=== PATIENT | female | born 1945 | race Caucasian/White ===

== ENCOUNTER 2017-05-08 15:59 | Inpatient (IN) | payer MEDICARE, MEDICAID ==
[2017-05-08 16:34] LABS: Hematocrit 49.7 % (37.0-47.0); Hemoglobin 14.5 gm/dL (12.5-16.0); Mean Cell Volume 94.7 fl (78-100); Mean Corpuscular Hemoglobin 27.6 pg (27-31); Mean Corpuscular Hgb Conc 29.2 g/dl (32-36); Mean Platelet Volume 11.1 fl (6.0-9.5); Neutrophil # 9.4 K/mm3 (1.3-6.0); Neutrophil % 88.2 % (42-75.0); Platelet Count 226 K/mm3 (150-450); Red Blood Count 5.25 M/mm3 (4.2-5.4); Red Cell Distribution Width 15.6 % (11.5-14.0); White Blood Count 10.7 K/mm3 (4.0-10.5)
--- OUTSIDE RECORDS SUMMARY | 2017-05-08 16:36 | XMS REPORT | Continuity of Care Document ---
:1945 Demographics Phone Unavailable Preferred Language Unknown Marital Status Unknown Worship Affiliation Unknown Race Unknown Ethnic Group Unknown Author Organization [facility] ([facility]) [place] [address] Phone [phone] Care Team Providers Name Role Phone Unavailable Primary Care Provider Unavailable Source Comments This disclosure is being made pursuant to the Care Everywhere program, applicable federal and state laws, and may not contain all informaitonavailable regarding this patient.[facility] ([facility]) Active Allergies and Adverse Reactions Not on File Current Medications Not on file Active Problems Not on file Social History Tobacco Use Types Packs/Day Years Used Date Never Assessed Plan of Care Health Maintenance Due Date Last Done Comments HCV Screening 1945 Hepatitis B Vaccine (1 of 3 - Primary Series) 1945 Tdap Vaccine 1957 Lipid Disorder Screening 1964 Td Vaccine 1964 Mammogram 1986 Colonoscopy 05/10/1996 Zoster Vaccine 2006 Osteoporosis Screening (DXA Bone Density) 2011 Pneumococcal Vaccine (1 of 2 - PCV13) 2011 Influenza Vaccine: Seasonal (#1) 07/01/2016 Results from Last 3 Months Not on file
--- OUTSIDE RECORDS SUMMARY | 2017-05-08 16:36 | XMS REPORT | Continuity of Care Document ---
:1945 Author Organization [facility] Address [place] [address] Care Team Providers Name Role Phone Rafael Diaz Trice Primary Care Provider [phone] Source Comments This disclosure is being made pursuant to the [employer] program and maynot contain all information available regarding this patient.[facility] [employer] Active Allergies and Adverse Reactions No Known Allergies Current Medications Be aware that medications may not be up to date as of this document. Alwaysverify current medications with the patient. Prescription Sig. Disp. Refills Start Date End Date Status amLODIPine (NORVASC) 10 MG 2 04/15/2017 Active tablet SYMBICORT 80-4.5 MCG/ACT 0 04/09/2017 Active inhaler furosemide (LASIX) 20 MG TK 2 TS PO QD 0 04/09/2017 Active tablet lamoTRIgine (LAMICTAL) 100 1 03/20/2017 Active MG tablet lithium 300 MG capsule TK 1 C PO D 0 03/20/2017 Active LATUDA 60 MG TABS tablet 1 03/27/2017 Active metoprolol succinate 5 04/07/2017 Active (TOPROL-XL) 50 MG 24 hr tablet SPIRIVA HANDIHALER 18 MCG 5 03/25/2017 Active inhalation capsule traZODone (DESYREL) 100 MG 1 03/20/2017 Active tablet ondansetron (ZOFRAN-ODT) 4 Take 1 tablet 15 tablet 1 05/07/2017 Active MG disintegrating tablet by mouth every 8 (eight) hours as needed for Nausea. MethylPREDNISolone Follow package 1 Package 0 05/07/2017 Active (MEDROL) 4 MG dosepak directions. 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); Decreased breath sounds; Dizzy Social History Tobacco Use Types Packs/Day Years Used Date Former Smoker Last Filed Vital Signs Vital Sign Reading Time Taken Blood Pressure 138/90 05/07/2017 3:58 PM CDT Pulse 67 05/07/2017 3:58 PM CDT Temperature 36.6 C (97.9 F) 05/07/2017 3:58 PM CDT Respiratory Rate 20 05/07/2017 3:58 PM CDT Height 1.575 m (5' 2") 05/07/2017 3:58 PM CDT Weight 105.235 kg (232 lb) 05/07/2017 3:58 PM CDT Body Mass Index 42.42 05/07/2017 3:58 PM CDT Oxygen Saturation 88% 05/07/2017 3:58 PM CDT Plan of Care Health Maintenance Due Date Last Done Comments Hepatitis C Screening 1964 Tetanus/Pertussis (1 - Tdap) 1965 Colonoscopy 1996 Mammogram 1996 Well Adult Visit 1996 Zoster Vaccine 60+ 2006 Bone Density 2011 Pneumococcal Low/Medium Risk 65+ (1 of 2 - PCV13) 2011 Influenza Immunization (#1) 2016 Results from Last 3 Months Not on file
[2017-05-08] MEDS ORDERED: ALBUTEROL SULFATE/IPRATROPIUM 3 ML NEBU IH ONE ×2 (16:44→16:46)
[2017-05-08] MEDS ORDERED: METHYLPREDNISOLONE SOD SUCC/PF 40 MG/ML VIAL IV ONE ×2 (16:47→16:57)
[2017-05-08] MEDS ORDERED: METHYLPREDNISOLONE SOD SUCC/PF 125 MG/2 ML VIAL ONE (16:48)
[2017-05-08 16:53] LABS: Albumin * 3.1 gm/dl (3.4-5.0); Anion Gap 7.7 mmol/L (6.8-13.8); BUN/Creatinine Ratio 9.4 (9.0-21.6); Bilirubin, Total 0.6 mg/dL (0.0-1.1); Ca. Corrected For Albumin 9.5 mg/dL (8.4-10.2); Calcium * 9.1 mg/dL (7.9-10.9); Carbon Dioxide 36.6 mmol/L (24-32.6); Potassium 4.3 mmol/L (3.4-4.6); Total Protein 7.1 gm/dL (6.2-8.2)
--- NOTE | 2017-05-08 17:32 | ERNOTE ---
Dyspnea - General Presenting Symptoms: shortness of breath, difficulty of breathing Time Seen by Provider: 05/08/17 16:04 Source: patient, family - Immun/Allergies/Home Medications Immunizations: IMMUNIZATION HX Immunizations Up to Date Yes History of Influenza Vaccine Yes Hx Pneumococcal Vaccination Yes Allergies/Adverse Reactions: Allergies No Known Allergies Allergy (Verified 05/20/16 15:43) Home Medications: HOME MEDICATIONS Albuterol Sulfate [Albuterol Sulfate 2.5 MG/0.5ML] 1 vial IH Q6H PRN 08/14/15 [ Last Taken Unknown] Clonazepam 2 mg PO DAILY@199908/14/15 [Last Taken Unknown] Gabapentin [Neurontin] 400 mg PO HS 08/14/15 [Last Taken Unknown] [place] Carbonate 300 mg PO DAILY 08/14/15 [Last Taken Unknown] Lurasidone HCl [Latuda] 120 mg PO DAILY 08/14/15 [Last Taken Unknown] Venlafaxine HCl 125 mg PO DAILY 08/14/15 [Last Taken Unknown] buPROPion HCL [Wellbutrin] 100 mg PO DAILY 08/14/15 [Last Taken Unknown] traZODone HCL [Desyrel] 50 mg PO HS 08/14/15 [Last Taken Unknown] traZODone HCL [Oleptro ER] 100 mg PO HS 08/14/15 [Last Taken Unknown] Metoprolol Succinate [Toprol Xl] 50 mg PO DAILY 05/20/16 [Last Taken Unknown] amLODIPine BESYLATE [Norvasc] 10 mg PO DAILY 05/20/16 [Last Taken Unknown] Albuterol Sulfate [Albuterol Sulfate 2.5 MG/0.5ML] 2.5 mg IH Q6HRT PRN #0 vial.neb 05/21/16 [Last Taken Unknown] Aspirin [Aspirin Chewable] 81 mg PO DAILY #100 tablet 05/21/16 [Last Taken Unknown] Budesonide/Formoterol Fumarate [Symbicort 80-4.5 Mcg Inhaler] 10.2 gm IH BID #1 hfa.aer.ad 05/21/16 [Last Taken Unknown] Cholecalciferol (Vitamin D3) [Vitamin D3] 4,000 unit PO DAILY #100 capsule 05/21 [Last Taken Unknown] Furosemide [Lasix] 40 mg PO DAILY #60 tablet 05/21/16 [Last Taken Unknown] Ibuprofen [Motrin] 400 mg PO Q8H PRN #60 tablet 05/21/16 [Last Taken Unknown] Potassium Chloride [K-Dur] 20 meq PO DAILY@1200 #60 tab 05/21/16 [Last Taken Unknown] - History of Present Illness Narrative: Patient presents with progressively worsening shortness of breath over the last 2 days. Daughter states when she arrived today that mother was considerably worse in her normal state. Patient has been using her albuterol at home, and she states she quit smoking approximately 2 years ago. Patient admits to over a 50 year pack history of smoking. Patient states that she is also developed a cough over the past 2 days. 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 Frequency of episodes: Reports: occassional episodes Modifying Factors - (Improves): Reports: albuterol Modifying Factors (Worsens): Reports: activity Associated Symptoms-Dyspnea: Reports: cough, wheezing Review of Systems - Review of Systems Constitutional: Present: See HPI EYE: Present: no symptoms reported ENT: Present: no symptoms reported Respiratory: Present: See HPI, shortness of breath, cough, wheezing Cardiology: Present: no symptoms reported Gastrointestinal/Abdominal: Present: no symptoms reported Genitourinary: Present: no symptoms reported Musculoskeletal: Present: no symptoms reported Skin: Present: no symptoms reported Neurological: Present: no symptoms reported Endocrine: Present: no symptoms reported Hematologic/Lymphatic: Present: no symptoms reported Psych: Present: no symptoms reported - Patient's Past Medical History Patient History - Medical: Anxiety, Bipolar, Depression Patient History - Cardiac/Respiratory: CHF, COPD, Hypertension Patient History - Cancer: No Hx of Cancer Patient History - Surgical Procedures: Cholecystectomy Patient History - Other: None - Family History Father Family History - Medical: Family History - Cardiac/Respiratory: COPD Mother Family History - Medical: Family History - Cardiac/Respiratory: CVA/Stroke Sister Family History - Medical: Family History - Cardiac/Respiratory: COPD, CVA/Stroke - Social History Living Situations: home Abuse History: No History of abuse Psych History: Hx of Anxiety, Hx of Depression, Hx of Bipolar Disorder, Current tx/ever been on anti-depressants or anti-anxiety meds Smoking Status: Former smoker Have you smoked in the past 12 months: No Do you dip or chew tobacco: No Alcohol Use: occasionally Drug Use: none - Immunizations Immunizations Up to Date: Yes Hx Pneumococcal Vaccination: Yes History of Influenza Vaccine: Yes Physical Exam - Physical Exam General Appearance: Present: wd/wn, alert, moderate distress Eye Exam: Normal inspection: bilateral, PERRL: bilateral Ears, Nose, Throat: Present: normal ENT inspection, H, normal pharynx Neck: Present: normal inspection, nontender Respiratory: Present: chest nontender, respiratory distress, decreased breath sounds, wheezing Cardiovascular/Chest: Present: regular rate, rhythm, no murmur, normal peripheral pulses Gastrointestinal/Abdominal: Present: normal bowel sounds, nontender, nondistended, soft, no organomegaly Rectal Exam: Present: deferred Back Exam: Present: normal inspection, normal range of motion Extremity Exam: Present: normal inspection, non-tender, no edema, normal range of motion Neurological Exam: Present: alert, oriented, normal mood/affect Skin Exam: Present: normal color, warm/dry Lymphatic Exam: Present: no adenopathy ED Progress - Results and Orders Patient's Lab Results:: I have reviewed the patient's lab results. - Vital Signs Patient's Vital Signs:: I have reviewed the patient's vital signs. Vital Signs: Vital Signs 05/08/17 05/08/17 05/08/17 16:15 16:25 16:46 Temperature 36.4 C L Pulse Rate 84 88 78 Respiratory 22 H 20 Rate Blood Pressure 155/85 O2 Sat by Pulse 70 L 88 L Oximetry 05/08/17 05/08/17 16:56 17:00 Temperature Pulse Rate 79 84 Respiratory 22 H 28 H Rate Blood Pressure 149/81 O2 Sat by Pulse 90 Oximetry - X-Ray X-Ray #1 X-Ray: chest Interpretation: Reviewed by me - Progress/Reassessment Chief Complaint: Dyspnea Plan - Plan Plan: While the patient is mildly improved she is still having considerable shortness of breath. She would benefit from a hospital stay with pulmonary toilet, IV steroids and nebulized breathing treatments. She is amenable and Dr. Cedric Plunkett has agreed to admit. Departure Clinical Impression: Hypoxia, Acute exacerbation of chronic obstructive pulmonary disease (COPD) - Departure Disposition: [facility] Condition: Fair
[2017-05-08 18:42] LABS: Urine Bacteria 3+; Urine RBC None Seen /hpf (0-5); Urine WBC 0-5 /hpf (0-5)
--- OUTSIDE RECORDS SUMMARY | 2017-05-08 19:09 | XMS REPORT | Continuity of Care Document ---
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
--- OUTSIDE RECORDS SUMMARY | 2017-05-08 19:09 | XMS REPORT | Continuity of Care Document ---
:1945 Demographics Phone Unavailable Preferred Language Unknown Marital Status Unknown Anabaptist Affiliation Unknown Race Unknown Ethnic Group Unknown Author Organization [facility] ([facility]) [place] [address] Phone [phone] Care Team Providers Name Role Phone Unavailable Primary Care Provider Unavailable Source Comments This disclosure is being made pursuant to the Care Everywhere program, applicable federal and state laws, and may not contain all informaitonavailable regarding this patient.[facility] ([facility]) Active Allergies and Adverse Reactions Not on [...]
[2017-05-08] MEDS ORDERED: FUROSEMIDE 10 MG/ML VIAL IV ONE (20:41)
[2017-05-08] MEDS: ALBUTEROL SULFATE/IPRATROPIUM 3 ML NEBU IH SCH (21:10)
[2017-05-08] MEDS ORDERED: FUROSEMIDE 10 MG/ML VIAL ONE (22:59)
--- NOTE | 2017-05-08 23:19 | HP ---
Addendum entered and electronically signed by Елена Meraz ARNP 05/09/17 07: 09: an additional O2 sats shortly after admission revealed 88% on 4L nc. sg Addendum entered and electronically signed by Елена Meraz ARNP 05/09/17 06: 22: Under acute on chronic respiratory failure, it should read saturation on admission from ER was 95% on 4L NC NOT RA. SG Original Note: <Елена Meraz - Last Filed: 05/09/17 00:22> Chief Complaint - Chief Complaint Date of Service: 05/08/17 Time of Service: 20:30 Chief Complaint: shortness of breath History of Present Illness: Flakita is a 71 year old patient of Dr. Diaz with a PMH of COPD, chronic respiratory failure on 4L O2 (although she has not been wearing O2 consistently recently), HTN, TORRI (noncompliant with cpap), depression and chronic UTIs who presented to the ER with dyspnea. States has felt "out of it" and shaky for 1 week with increasing dyspnea for 2 days. O2 sats in ER 70% on RA. currently saturating 95% on 4L nc. ABG showed acute respiratory acidosis with concomitant metabolic alkalosis, pCO2 at 65.0, ph 7.31 - however ABG was done when pt on O2 after 10 minutes. UA positive for +3 bacteria, no RBC, no WBC, no epi cells with culture pending. BNP elevated at 1455. ER treatment included duoneb, 125 mg iv solumedrol and rocephin 1 gm iv. echo 02/27/15 ef 70 % with mod LVH and possible diastolic dysfunction. Patient to be admitted for acute on chronic respiratory failure and COPD exacerbation. Stay expected to be at least 3 midnights. - Patient's Past Medical History Patient History - Medical: Anxiety, Bipolar, Depression Patient History - Cardiac/Respiratory: CHF, COPD, Hypertension Patient History - Cancer: No Hx of Cancer Patient History - Surgical Procedures: Cholecystectomy Patient History - Other: None LMP (females 10-50): Menopausal - Family History Father Family History - Medical: Family History - Cardiac/Respiratory: COPD Mother Family History - Medical: Family History - Cardiac/Respiratory: CVA/Stroke Sister Family History - Medical: Family History - Cardiac/Respiratory: COPD, CVA/Stroke - Social History Living Situations: alone Abuse History: No History of abuse Psych History: Hx of Anxiety, Hx of Depression, Hx of Bipolar Disorder, Current tx/ever been on anti-depressants or anti-anxiety meds Smoking Status: Former smoker Have you smoked in the past 12 months: No Do you dip or chew tobacco: No Smoking Stop Date: 05/08/15 Patient requests Smoking Cessation Consult: No Initiate information on Smoking Cessation: No Alcohol Use: occasionally Drug Use: none - Immunizations Immunizations Up to Date: Yes Hx Pneumococcal Vaccination: Yes History of Influenza Vaccine: Yes Review Of Systems (GEN) - Review of Systems Generalized/Overall Review: Present: Malaise, Fatigue. Absent: Fever EENTM: Present: No Symptoms Reported Respiratory: Present: Shortness of Breath Cardiac: Present: No Symptoms Reported Abdominal: Present: No Symptoms Reported Genitourinary: Present: No Symptoms Reported Musculoskeletal: Present: No Symptoms Reported Neurological: Present: No Symptoms Reported Skin: Present: No Symptoms Reported Endocrine: Present: No Symptoms Reported Misc: All systems neg except as marked Immunizations: IMMUNIZATION HX Immunizations Up to Date Yes History of Influenza Vaccine Yes Hx Pneumococcal Vaccination Yes Allergies/Adverse Reactions: Allergies Allergy/AdvReac Type Severity Reaction Status Date / Time No Known Allergies Allergy Verified 05/09/17 02:09 Home Medications: HOME MEDICATIONS Albuterol Sulfate [Albuterol Sulfate 2.5 MG/0.5ML] 1 vial IH Q6H PRN 08/14/15 [ Last Taken Unknown] Clonazepam 2 mg PO DAILY@199908/14/15 [Last Taken 05/07/17] Gabapentin [Neurontin] 400 mg PO 08/14/15 [Last Taken 05/07/17] Giltner Carbonate 300 mg PO DAILY 08/14/15 [Last Taken 05/08/17] Lurasidone HCl [Latuda] 120 mg PO DAILY 08/14/15 [Last Taken 05/08/17] Venlafaxine HCl 125 mg PO DAILY 08/14/15 [Last Taken 05/08/17] buPROPion HCL [Wellbutrin] 100 mg PO DAILY 08/14/15 [Last Taken 05/08/17] traZODone HCL [Oleptro ER] 100 mg PO 08/14/15 [Last Taken 05/07/17] Metoprolol Succinate [Toprol Xl] 50 mg PO DAILY 05/20/16 [Last Taken 05/08/17] amLODIPine BESYLATE [Norvasc] 10 mg PO DAILY 05/20/16 [Last Taken 05/08/17] Albuterol Sulfate [Albuterol Sulfate 2.5 MG/0.5ML] 2.5 mg IH Q6HRT PRN #0 vial.neb 05/21/16 [Last Taken Unknown] Aspirin [Aspirin Chewable] 81 mg PO DAILY #100 tablet 05/21/16 [Last Taken 05/08] Budesonide/Formoterol Fumarate [Symbicort 80-4.5 Mcg Inhaler] 10.2 gm IH BID #1 hfa.aer.ad 05/21/16 [Last Taken 05/08/17] Cholecalciferol (Vitamin D3) [Vitamin D3] 4,000 unit PO DAILY #100 capsule 05/21 [Last Taken 05/08/17] Furosemide [Lasix] 40 mg PO DAILY #60 tablet 05/21/16 [Last Taken 05/08/17] Ibuprofen [Motrin] 400 mg PO Q8H PRN #60 tablet 05/21/16 [Last Taken Unknown] Potassium Chloride [K-Dur] 20 meq PO DAILY@1200 #60 tab 05/21/16 [Last Taken 07/17] Methylprednisolone [Medrol Dosepak] 24 mg PO DAILY 05/09/17 [Last Taken 09:00] Ondansetron [Zofran Odt] 4 mg PO TID PRN 05/09/17 [Last Taken Unknown] Exam - Exam Vital Signs: Vital Signs - Last Taken Temp 36.8 C 05/08/17 19:57 Pulse 77 05/08/17 21:20 Resp 20 05/08/17 21:20 BP 141/61 05/08/17 19:57 Pulse Ox 94 05/08/17 21:10 Constitutional: Present: Alert, Cooperative, No distress ENT Exam: Present: hearing grossly normal Eye Exam: bilateral eye: normal inspection Neck: Present: full range of motion, supple Back Exam: Present: normal inspection, no vertebral tenderness Breasts: Present: Exam deferred Respiratory: Present: no respiratory distress, rhonchi, wheezing, expiration ( prolonged) Cardiovascular/Chest: Present: normal peripheral pulses, regular rate, rhythm, no chest tenderness Peripheral Pulses: dorsalis-pedis (R): 2+, dorsalis-pedis (L): 2+, radial (R): 2 +, radial (L): 2+ Abdomen: Present: soft, nontender, nondistended /Rectal: Present: Exam deferred Extremity: Present: non-tender, lower extremity edema - +1 pitting bilat. Absent: slow capillary refill Skin Exam: Present: normal color, warm/dry, no cyanosis Diagnostic Studies: Laboratory Results WBC 10.7 K/mm3 (4.0-10.5) H 05/08/17 16:28 RBC 5.25 M/mm3 (4.2-5.4) 05/08/17 16:28 Hgb 14.5 gm/dL (12.5-16.0) 05/08/17 16:28 Hct 49.7 % (37.0-47.0) H 05/08/17 16:28 MCV 94.7 fl (78-100) 05/08/17 16:28 MCH 27.6 pg (27-31) 05/08/17 16:28 MCHC 29.2 g/dl (32-36) L 05/08/17 16:28 RDW 15.6 % (11.5-14.0) H 05/08/17 16:28 Plt Count 226 K/mm3 (150-450) 05/08/17 16:28 MPV 11.1 fl (6.0-9.5) H 05/08/17 16:28 Immature Gran % (Auto) 0.60 % (0.001-0.429) H 05/08/17 16:28 Immature Gran # (Auto) 0.06 K/mm3 (0.000-0.0310) H 05/08/17 16:28 Neutrophils % 88.2 % (42-75.0) H 05/08/17 16:28 Lymphocytes % 8.8 % (20-51) L 05/08/17 16:28 Monocytes % 1.4 % (0.0-9) 05/08/17 16:28 Eosinophils % 0.4 % (0.0-3.0) 05/08/17 16:28 Basophils % 0.6 % (0.0-1.0) 05/08/17 16:28 Nucleated RBC % 0.0 k/mm3 (0-1) 05/08/17 16:28 Neutrophils # 9.4 K/mm3 (1.3-6.0) H 05/08/17 16:28 Lymphocytes # 0.9 k/mm3 (1.5-3.5) L 05/08/17 16:28 Monocytes # 0.2 k/mm3 (0.0-1.0) 05/08/17 16:28 Eosinophils # 0.0 k/mm3 (0.0-0.7) 05/08/17 16:28 Absolute Basophils 0.1 k/mm3 (0.0-0.1) 05/08/17 16:28 pCO2 65.0 mmHg (32.0-45.0) H 05/08/17 16:32 pO2 59.8 mmHg (83.0-108.0) L 05/08/17 16:32 HCO3 31.6 mmol/L (21.0-28.0) H 05/08/17 16:32 Total CO2 33.6 mmol/L (19.0-24.0) H 05/08/17 16:32 Base Excess 3.3 mmol/L (-2.0-3.0) H 05/08/17 16:32 ABG pH 7.31 (7.35-7.45) L 05/08/17 16:32 ABG O2 Sat (Measured) 87.7 % (94.0-98.0) L 05/08/17 16:32 Sodium 139 mmol/L (132-142) 05/08/17 16:28 Plasma Sodium 140 mmol/L (130-142) 05/08/17 16:28 Potassium 4.3 mmol/L (3.4-4.6) 05/08/17 16:28 Chloride 99 mmol/L (97-106) 05/08/17 16:28 Carbon Dioxide 36.6 mmol/L (24-32.6) H 05/08/17 16:28 Anion Gap 7.7 mmol/L (6.8-13.8) 05/08/17 16:28 BUN 12 mg/dL (3-23) 05/08/17 16:28 Creatinine 1.28 mg/dL (0.4-1.4) 05/08/17 16:28 Est GFR (Non-Af Amer) 44 mL/min (60-130) L D 05/08/17 16:28 BUN/Creatinine Ratio 9.4 (9.0-21.6) 05/08/17 16:28 Random Glucose 163 mg/dL (70-110) H 05/08/17 16:28 Calcium 9.1 mg/dL (7.9-10.9) 05/08/17 16:28 Calcium Adj for Albumin 9.5 mg/dL (8.4-10.2) 05/08/17 16:28 Magnesium 1.8 mg/dL (1.2-2.8) 05/08/17 Unknown Total Bilirubin 0.6 mg/dL (0.0-1.1) 05/08/17 16:28 AST 15 U/L (0-48) 05/08/17 16:28 ALT 11 U/L (19-67) L 05/08/17 16:28 Alkaline Phosphatase 107 U/L (50-170) 05/08/17 16:28 B-Natriuretic Peptide 1455 pg/mL (5-325) H 05/08/17 16:28 Total Protein 7.1 gm/dL (6.2-8.2) 05/08/17 16:28 Albumin 3.1 gm/dl (3.4-5.0) L 05/08/17 16:28 Urine RBC None seen /hpf (0-5) 05/08/17 18:41 Urine WBC 0-5 /hpf (0-5) 05/08/17 18:41 Ur Epithelial Cells None seen /hpf (0-5) 05/08/17 18:41 Urine Bacteria 3+ (NONE) H 05/08/17 18:41 Urine Comment Culture ordered L 05/08/17 18:41 Assessment/Plan - Narrative Narrative: COPD exac with hypoxia and hypercapnia - In ER 70% on RA - not using 4L nc at home consistently - ABG c/w respiratory acidosis - hypercapnia noticed as well - Bipap overnight to try and improve - Given duoneb tx and 125 mg iv solumedrol in ER - Start Solumedrol 80 mg q 8 hours - Day #1 - Start IV abx (per COPD exac protocol) - Rocephin 1 gm iv daily - Day #1 - Azithromycin 500 mg iv daily - Day #1 - Duoneb treatments QID - Incentive spirometer q1 hour while awake - encourage cough / deep breathing - cont O2 monitor Acute on Chronic respiratory failure - In ER 70% on RA - not using 4L nc at home consistently - with history COPD, goal O2 range: 88-92% - O2 per nc with bipap was needed has been ordered. - On admission from ER, saturating 95% on RA. - Due to COPD exac. - Abx treatment (per copd protocol) - rocephin 1 gm iv daily - day #1 - azithromycin 500 mg iv daily - day #1 Acute diastolic heart failure exac - lungs sound coarse, although chest xray non-acute. - legs with +1 pitting edema bilat - BNP elevated. - Lasix 40 mg iv x1 05/08/17 - strict I&Os - daily weights - CHF teaching - telemetry Generalized weakness - consult PT/OT UTI, suspected - urine micro only ordered - add UA for additional data - urine culture pending. - Rocephin 1 gm iv daily - Day #1 Sleep apnea - bipap/cpap at night - encourage use at home. HTN - vitals q 4 hours Code status: DNR VTE: lovenox / knee high shanthi hose GI proph: protonix po. - Assessment/Plan (1) Acute exacerbation of chronic obstructive pulmonary disease (COPD) Problem: Acute (2) Acute and chronic respiratory failure ([id number]) Problem: Acute QualifierTitle: Respiratory failure complication: hypoxia and hypercapnia Qualified Code(s): J96.21 - Acute and chronic respiratory failure with hypoxia ; J96.22 - Acute and chronic respiratory failure with hypercapnia (3) Acute diastolic CHF (congestive heart failure), NYHA class 2 Problem: Acute (4) HTN (hypertension) Problem: Chronic QualifierTitle: Hypertension type: essential hypertension Qualified Code( s): I10 - Essential (primary) hypertension (5) Sleep apnea Problem: Chronic QualifierTitle: Sleep apnea type: unspecified type Qualified Code(s): G47.30 - Sleep apnea, unspecified (6) UTI (urinary tract infection) Problem: Acute QualifierTitle: Urinary tract infection type: acute cystitis Hematuria presence: without hematuria Qualified Code(s): N30.00 - Acute cystitis without hematuria (7) Generalized weakness Problem: Acute <Piotr Hines - Last Filed: 05/09/17 18:14> Immunizations: IMMUNIZATION HX Immunizations Up to Date Yes History of Influenza Vaccine Yes Hx Pneumococcal Vaccination Yes Exam - Exam Vital Signs: Vital Signs - Last Taken Temp 36.5 C 05/09/17 14:34 Pulse 80 05/09/17 18:10 Resp 23 H 05/09/17 18:10 BP 131/65 05/09/17 14:34 Pulse Ox 95 05/09/17 18:10 Diagnostic Studies: Abnormal Lab Results 05/09/17 05/09/17 Range/Units 05:43 05:43 WBC 11.3 H (4.0-10.5) K/mm3 Hct 48.3 H (37.0-47.0) % MCHC 29.2 L (32-36) g/dl RDW 15.3 H (11.5-14.0) % MPV 11.1 H (6.0-9.5) fl Immature Gran % (Auto) 1.20 H (0.001-0.429) % Immature Gran # (Auto) 0.13 H (0.000-0.0310) K/mm3 Neutrophils % 87.5 H (42-75.0) % Lymphocytes % 8.8 L (20-51) % Neutrophils # 9.9 H (1.3-6.0) K/mm3 Lymphocytes # 1.0 L (1.5-3.5) k/mm3 Carbon Dioxide 37.6 H (24-32.6) mmol/L Est GFR (Non-Af Amer) 46 L (60-130) mL/min Random Glucose 137 H (70-110) mg/dL Laboratory Results WBC 11.3 K/mm3 (4.0-10.5) H 05/09/17 05:43 RBC 5.09 M/mm3 (4.2-5.4) 05/09/17 05:43 Hgb 14.1 gm/dL (12.5-16.0) 05/09/17 05:43 Hct 48.3 % (37.0-47.0) H 05/09/17 05:43 MCV 94.9 fl (78-100) 05/09/17 05:43 MCH 27.7 pg (27-31) 05/09/17 05:43 MCHC 29.2 g/dl (32-36) L 05/09/17 05:43 RDW 15.3 % (11.5-14.0) H 05/09/17 05:43 Plt Count 226 K/mm3 (150-450) 05/09/17 05:43 MPV 11.1 fl (6.0-9.5) H 05/09/17 05:43 Immature Gran % (Auto) 1.20 % (0.001-0.429) H 05/09/17 05:43 Immature Gran # (Auto) 0.13 K/mm3 (0.000-0.0310) H 05/09/17 05:43 Neutrophils % 87.5 % (42-75.0) H 05/09/17 05:43 Lymphocytes % 8.8 % (20-51) L 05/09/17 05:43 Monocytes % 2.0 % (0.0-9) 05/09/17 05:43 Eosinophils % 0.1 % (0.0-3.0) 05/09/17 05:43 Basophils % 0.4 % (0.0-1.0) 05/09/17 05:43 Nucleated RBC % 0.0 k/mm3 (0-1) 05/09/17 05:43 Neutrophils # 9.9 K/mm3 (1.3-6.0) H 05/09/17 05:43 Lymphocytes # 1.0 k/mm3 (1.5-3.5) L 05/09/17 05:43 Monocytes # 0.2 k/mm3 (0.0-1.0) 05/09/17 05:43 Eosinophils # 0.0 k/mm3 (0.0-0.7) 05/09/17 05:43 Absolute Basophils 0.1 k/mm3 (0.0-0.1) 05/09/17 05:43 pCO2 65.0 mmHg (32.0-45.0) H 05/08/17 16:32 pO2 59.8 mmHg (83.0-108.0) L 05/08/17 16:32 HCO3 31.6 mmol/L (21.0-28.0) H 05/08/17 16:32 Total CO2 33.6 mmol/L (19.0-24.0) H 05/08/17 16:32 Base Excess 3.3 mmol/L (-2.0-3.0) H 05/08/17 16:32 ABG pH 7.31 (7.35-7.45) L 05/08/17 16:32 ABG O2 Sat (Measured) 87.7 % (94.0-98.0) L 05/08/17 16:32 Sodium 141 mmol/L (132-142) 05/09/17 05:43 Plasma Sodium 142 mmol/L (130-142) 05/09/17 05:43 Potassium 4.1 mmol/L (3.4-4.6) 05/09/17 05:43 Chloride 100 mmol/L (97-106) 05/09/17 05:43 Carbon Dioxide 37.6 mmol/L (24-32.6) H 05/09/17 05:43 Anion Gap 7.5 mmol/L (6.8-13.8) 05/09/17 05:43 BUN 17 mg/dL (3-23) 05/09/17 05:43 Creatinine 1.22 mg/dL (0.4-1.4) 05/09/17 05:43 Est GFR (Non-Af Amer) 46 mL/min (60-130) L 05/09/17 05:43 BUN/Creatinine Ratio 13.9 (9.0-21.6) 05/09/17 05:43 Random Glucose 137 mg/dL (70-110) H 05/09/17 05:43 Calcium 9.1 mg/dL (7.9-10.9) 05/09/17 05:43 Calcium Adj for Albumin 9.5 mg/dL (8.4-10.2) 05/08/17 16:28 Magnesium 1.8 mg/dL (1.2-2.8) 05/08/17 Unknown Total Bilirubin 0.6 mg/dL (0.0-1.1) 05/08/17 16:28 AST 15 U/L (0-48) 05/08/17 16:28 ALT 11 U/L (19-67) L 05/08/17 16:28 Alkaline Phosphatase 107 U/L (50-170) 05/08/17 16:28 B-Natriuretic Peptide 1455 pg/mL (5-325) H 05/08/17 16:28 Total Protein 7.1 gm/dL (6.2-8.2) 05/08/17 16:28 Albumin 3.1 gm/dl (3.4-5.0) L 05/08/17 16:28 Urine Color Yellow 05/09/17 00:27 Urine Appearance Clear 05/09/17 00:27 Urine pH 6.5 pH (5.0-7.0) 05/09/17 00:27 Ur Specific [place] 1.010 SP.GR. (1.005-1.010) 05/09/17 00:27 Urine Protein Negative mg/dL (NEGATIVE) 05/09/17 00:27 Urine Glucose (UA) Negative mg/dL (NEGATIVE) 05/09/17 00:27 Urine Ketones Negative mg/dL (NEGATIVE) 05/09/17 00:27 Urine Blood Negative /ul (NEGATIVE) 05/09/17 00:27 Urine Nitrate Negative (NEGATIVE) 05/09/17 00:27 Urine Bilirubin Negative mg/dl (NEGATIVE) 05/09/17 00:27 Urine Urobilinogen Normal EU/dl (NORMAL) 05/09/17 00:27 Ur Leukocyte Esterase Negative /ul (NEGATIVE) 05/09/17 00:27 Urine RBC 0-5 /hpf (0-5) 05/09/17 00:27 Urine WBC 0-5 /hpf (0-5) 05/09/17 00:27 Ur Epithelial Cells 0-5 /hpf (0-5) 05/09/17 00:27 Urine Bacteria None seen (NONE) 05/09/17 00:27 Urine Comment Culture ordered L 05/08/17 18:41 Assessment/Plan - Narrative Narrative: The main problem is acute exacerbation of COPD. I directed our nurse practitioner hospitalist care for this patient.
[2017-05-08] MEDS: METHYLPREDNISOLONE SOD SUCC 80 MG in WATER FOR INJ.,BACTERIOSTATIC 0 ML IV SCH (23:26)
[2017-05-09] MEDS ORDERED: guaiFENesin 100 MG/5 ML BTL PO PRN (00:32)
[2017-05-09] MEDS ORDERED: ALBUTEROL SULFATE 2.5 MG/3 ML VIAL.NEB IH PRN (00:32)
[2017-05-09] MEDS: ENOXAPARIN SODIUM 40 MG/0.4 ML SYRG SC SCH ×2 (01:47→20:36)
[2017-05-09] MEDS: AZITHROMYCIN 500 MG in DEXTROSE 5 % IN WATER 250 ML IV SCH ×2 (01:48)
[2017-05-09] MEDS: METHYLPREDNISOLONE SOD SUCC 80 MG in WATER FOR INJ.,BACTERIOSTATIC 0 ML IV SCH ×3 (04:44→17:26)
[2017-05-09 05:03] LABS: Urine Bilirubin Negative (NEGATIVE); Urine Blood Negative /ul (NEGATIVE); Urine Ketone Negative (NEGATIVE); Urine Nitrite Negative (NEGATIVE); Urine Protein Negative (NEGATIVE); Urine Urobilinogen Normal (NORMAL); Urine pH 6.5 pH (5.0-7.0)
[2017-05-09 05:47] LABS: Hematocrit 48.3 % (37.0-47.0); Hemoglobin 14.1 gm/dL (12.5-16.0); Mean Cell Volume 94.9 fl (78-100); Mean Corpuscular Hemoglobin 27.7 pg (27-31); Mean Corpuscular Hgb Conc 29.2 g/dl (32-36); Mean Platelet Volume 11.1 fl (6.0-9.5); Neutrophil # 9.9 K/mm3 (1.3-6.0); Neutrophil % 87.5 % (42-75.0); Platelet Count 226 K/mm3 (150-450); Red Blood Count 5.09 M/mm3 (4.2-5.4); Red Cell Distribution Width 15.3 % (11.5-14.0); White Blood Count 11.3 K/mm3 (4.0-10.5)
[2017-05-09] MEDS: ALBUTEROL SULFATE/IPRATROPIUM 3 ML NEBU IH SCH ×4 (06:04→18:10)
[2017-05-09 06:05] LABS: Anion Gap 7.5 mmol/L (6.8-13.8); BUN/Creatinine Ratio 13.9 (9.0-21.6); Calcium * 9.1 mg/dL (7.9-10.9); Carbon Dioxide 37.6 mmol/L (24-32.6); Estimated Creat Clear 33.9; Potassium 4.1 mmol/L (3.4-4.6)
[2017-05-09 06:21] LABS: Urine Appearance Clear; Urine Color Yellow
[2017-05-09 06:22] LABS: Urine Bacteria None Seen; Urine RBC 0-5 /hpf (0-5); Urine WBC 0-5 /hpf (0-5)
--- NOTE | 2017-05-09 06:22 | PN ---
<Елена Meraz - Last Filed: 05/09/17 06:15> Subjective - Date and Time Seen Date: 05/09/17 Time: 05:10 Subjective Narrative: denies needs. no cp or dyspnea. rested comfortable in bed overnight. Objective - Review of Systems Generalized/Overall Review: Reports: Fatigue EENTM: Reports: No Symptoms Reported Respiratory: Reports: No Symptoms Reported Cardiac: Reports: No Symptoms Reported Abdominal: Reports: No Symptoms Reported Genitourinary Symptoms: Reports: No Symptoms Reported Musculoskeletal Complaints: Reports: No Symptoms Reported Neurological: Reports: No Symptoms Reported Skin: Reports: No Symptoms Reported Endocrine: Reports: No Symptoms Reported Misc: All systems neg except as marked - Vitals Vitals: Last Vital Signs Temp 36.4 C L 05/09/17 03:00 Pulse 78 05/09/17 06:04 Resp 20 05/09/17 06:04 BP 138/77 05/09/17 03:00 Pulse Ox 96 05/09/17 06:04 - Abnormal Lab Findings Abnormal Lab Findings: Abnormal Lab Results 05/09/17 05/09/17 Range/Units 05:43 05:43 WBC 11.3 H (4.0-10.5) K/mm3 Hct 48.3 H (37.0-47.0) % MCHC 29.2 L (32-36) g/dl RDW 15.3 H (11.5-14.0) % MPV 11.1 H (6.0-9.5) fl Immature Gran % (Auto) 1.20 H (0.001-0.429) % Immature Gran # (Auto) 0.13 H (0.000-0.0310) K/mm3 Neutrophils % 87.5 H (42-75.0) % Lymphocytes % 8.8 L (20-51) % Neutrophils # 9.9 H (1.3-6.0) K/mm3 Lymphocytes # 1.0 L (1.5-3.5) k/mm3 Carbon Dioxide 37.6 H (24-32.6) mmol/L Est GFR (Non-Af Amer) 46 L (60-130) mL/min Random Glucose 137 H (70-110) mg/dL - Exam Constitutional: Present: Alert, Cooperative, No distress ENT Exam: Present: hearing grossly normal Neck: Present: supple, normal inspection Breasts: Present: Exam deferred Respiratory: Present: chest non-tender, no respiratory distress, rhonchi, expiration (prolonged) Cardiovascular/Chest: Present: normal peripheral pulses, regular rate, rhythm, no JVD Abdomen: Present: soft, nontender, nondistended /Rectal: Present: Exam deferred Extremity: Present: non-tender, normal inspection, no pedal edema Skin Exam: Present: normal color, warm/dry, no cyanosis Assessment/Plan Plan Narrative: COPD exac with hypoxia and hypercapnia - In ER 70% on RA - not using 4L nc at home consistently - ABG c/w respiratory acidosis - hypercapnia noticed as well - Bipap overnight to try and improve - Given duoneb tx and 125 mg iv solumedrol in ER - Solumedrol 80 mg q 8 hours - Day #2 - IV abx (per COPD exac protocol) - Rocephin 1 gm iv daily - Day #2 - Azithromycin 500 mg iv daily - Day #2 - Duoneb treatments QID - Incentive spirometer q1 hour while awake - encourage cough / deep breathing - cont O2 monitor Acute on Chronic respiratory failure - In ER 70% on RA - not using 4L nc at home consistently - with history COPD, goal O2 range: 88-92% - O2 per nc with bipap was needed has been ordered. - On admission from ER, saturating 95% on 4L nc. - Due to COPD exac. - Abx treatment (per copd protocol) - rocephin 1 gm iv daily - day #2 - azithromycin 500 mg iv daily - day #2 Acute diastolic heart failure exac - lungs sound coarse, although chest xray non-acute. - legs with +1 pitting edema bilat - BNP elevated. - Lasix 40 mg iv x1 05/08/17 - strict I&Os - daily weights - CHF teaching - telemetry Generalized weakness - consult PT/OT UTI, suspected - urine micro only ordered - add UA for additional data - urine culture pending. - Rocephin 1 gm iv daily - Day #2 Sleep apnea - bipap/cpap at night - encourage use at home. HTN - vitals q 4 hours Code status: DNR VTE: lovenox / knee high shanthi hose GI proph: protonix po. - Problems/Diagnosis (1) Acute exacerbation of chronic obstructive pulmonary disease (COPD) Problem: Acute (2) Acute and chronic respiratory failure ([id number]) Problem: Acute QualifierTitle: Respiratory failure complication: hypoxia and hypercapnia Qualified Code(s): J96.21 - Acute and chronic respiratory failure with hypoxia ; J96.22 - Acute and chronic respiratory failure with hypercapnia (3) Acute diastolic CHF (congestive heart failure), NYHA class 2 Problem: Acute (4) HTN (hypertension) Problem: Chronic QualifierTitle: Hypertension type: essential hypertension Qualified Code( s): I10 - Essential (primary) hypertension (5) Sleep apnea Problem: Chronic QualifierTitle: Sleep apnea type: unspecified type Qualified Code(s): G47.30 - Sleep apnea, unspecified (6) UTI (urinary tract infection) Problem: Acute QualifierTitle: Urinary tract infection type: acute cystitis Hematuria presence: without hematuria Qualified Code(s): N30.00 - Acute cystitis without hematuria (7) Generalized weakness Problem: Acute <Piotr Hines - Last Filed: 05/09/17 13:17> Subjective Subjective Narrative: Feeling much better. Will follow up with labs tomorrow. Probably home with labs within a couple of days. Objective - Vitals Vitals: Last Vital Signs Temp 36.7 C 05/09/17 10:00 Pulse 83 05/09/17 10:47 Resp 20 05/09/17 10:47 BP 112/48 05/09/17 10:00 Pulse Ox 94 05/09/17 10:37 - Abnormal Lab Findings Abnormal Lab Findings: Abnormal Lab Results 05/09/17 05/09/17 Range/Units 05:43 05:43 WBC 11.3 H (4.0-10.5) K/mm3 Hct 48.3 H (37.0-47.0) % MCHC 29.2 L (32-36) g/dl RDW 15.3 H (11.5-14.0) % MPV 11.1 H (6.0-9.5) fl Immature Gran % (Auto) 1.20 H (0.001-0.429) % Immature Gran # (Auto) 0.13 H (0.000-0.0310) K/mm3 Neutrophils % 87.5 H (42-75.0) % Lymphocytes % 8.8 L (20-51) % Neutrophils # 9.9 H (1.3-6.0) K/mm3 Lymphocytes # 1.0 L (1.5-3.5) k/mm3 Carbon Dioxide 37.6 H (24-32.6) mmol/L Est GFR (Non-Af Amer) 46 L (60-130) mL/min Random Glucose 137 H (70-110) mg/dL
[2017-05-09] MEDS: PANTOPRAZOLE SODIUM 40 MG TABLET.EC PO SCH (07:05)
[2017-05-09] MEDS ORDERED: ALBUTEROL SULFATE 2.5 MG/0.5 ML VIAL.NEB IH PRN (19:12)
[2017-05-09] MEDS ORDERED: VENLAFAXINE HCL 125 MG PO SCH (19:15)
[2017-05-09] MEDS ORDERED: LITHIUM CARBONATE 300 MG CAPSULE PO SCH (20:00)
[2017-05-09] MEDS ORDERED: LURASIDONE HCL 80 MG TABLET PO SCH (20:00)
[2017-05-09] MEDS ORDERED: clonazePAM 1 MG TABLET PO SCH (20:00)
[2017-05-09] MEDS ORDERED: ASPIRIN 81 MG TAB.CHEW PO SCH (20:00)
[2017-05-09] MEDS ORDERED: CHOLECALCIFEROL 1,000 UNIT CAPSULE PO SCH (20:00)
[2017-05-09] MEDS: buPROPion HCL 100 MG TABLET PO SCH ×2 (20:22→20:39)
[2017-05-09] MEDS: FLUTICASONE/SALMETEROL 14 PUFF DISK.W.DEV IH SCH (20:23)
[2017-05-09] MEDS ORDERED: LITHIUM CARBONATE 150 MG CAPSULE ONE (20:28)
[2017-05-09] MEDS ORDERED: amLODIPine BESYLATE 5 MG TABLET ONE (20:31)
[2017-05-09] MEDS: amLODIPine BESYLATE 10 MG TABLET PO SCH (20:34)
[2017-05-09] MEDS: METOPROLOL SUCCINATE 50 MG TABLET.SA PO SCH (20:35)
[2017-05-09] MEDS: GABAPENTIN 400 MG CAPSULE PO SCH (20:36)
[2017-05-09] MEDS: traZODone HCL 50 MG TABLET PO SCH (20:44)
[2017-05-10] MEDS: AZITHROMYCIN 500 MG in DEXTROSE 5 % IN WATER 250 ML IV SCH ×2
[2017-05-10] MEDS: METHYLPREDNISOLONE SOD SUCC 80 MG in WATER FOR INJ.,BACTERIOSTATIC 0 ML IV SCH ×6 (05:22→23:59)
[2017-05-10 05:31] LABS: Hematocrit 47.9 % (37.0-47.0); Hemoglobin 13.8 gm/dL (12.5-16.0); Mean Cell Volume 94.9 fl (78-100); Mean Corpuscular Hemoglobin 27.3 pg (27-31); Mean Corpuscular Hgb Conc 28.8 g/dl (32-36); Mean Platelet Volume 11.6 fl (6.0-9.5); Neutrophil # 12.8 K/mm3 (1.3-6.0); Neutrophil % 91.8 % (42-75.0); Platelet Count 234 K/mm3 (150-450); Red Blood Count 5.05 M/mm3 (4.2-5.4); Red Cell Distribution Width 15.3 % (11.5-14.0); White Blood Count 13.9 K/mm3 (4.0-10.5)
[2017-05-10 05:47] LABS: Anion Gap 6.7 mmol/L (6.8-13.8); BUN/Creatinine Ratio 20.8 (9.0-21.6); Calcium * 9.9 mg/dL (7.9-10.9); Carbon Dioxide 37.6 mmol/L (24-32.6); Estimated Creat Clear 39.1; Potassium 4.3 mmol/L (3.4-4.6)
[2017-05-10] MEDS: ALBUTEROL SULFATE/IPRATROPIUM 3 ML NEBU IH SCH ×4 (06:06→18:09)
[2017-05-10] MEDS ORDERED: FUROSEMIDE 10 MG/ML VIAL IV ONE (06:21)
--- NOTE | 2017-05-10 06:28 | PN ---
<Елена Meraz - Last Filed: 05/10/17 06:17> Subjective - Date and Time Seen Date: 05/10/17 Time: 05:47 Subjective Narrative: denies needs. no cp. states shortness of breath is much improved. Objective - Review of Systems Generalized/Overall Review: Reports: No Symptoms Reported EENTM: Reports: No Symptoms Reported Respiratory: Reports: No Symptoms Reported Cardiac: Reports: No Symptoms Reported Abdominal: Reports: No Symptoms Reported Genitourinary Symptoms: Reports: No Symptoms Reported Musculoskeletal Complaints: Reports: No Symptoms Reported Neurological: Reports: No Symptoms Reported Skin: Reports: No Symptoms Reported Endocrine: Reports: No Symptoms Reported Misc: All systems neg except as marked - Vitals Vitals: Last Vital Signs Temp 36.3 C L 05/10/17 00:10 Pulse 67 05/10/17 06:15 Resp 24 H 05/10/17 06:15 BP 143/72 05/10/17 00:10 Pulse Ox 92 05/10/17 06:06 - Abnormal Lab Findings Abnormal Lab Findings: Abnormal Lab Results 05/10/17 05/10/17 Range/Units 05:20 05:20 WBC 13.9 H D (4.0-10.5) K/mm3 Hct 47.9 H (37.0-47.0) % MCHC 28.8 L (32-36) g/dl RDW 15.3 H (11.5-14.0) % MPV 11.6 H (6.0-9.5) fl Immature Gran % (Auto) 0.70 H (0.001-0.429) % Immature Gran # (Auto) 0.10 H (0.000-0.0310) K/mm3 Neutrophils % 91.8 H (42-75.0) % Lymphocytes % 4.4 L (20-51) % Neutrophils # 12.8 H (1.3-6.0) K/mm3 Lymphocytes # 0.6 L (1.5-3.5) k/mm3 Carbon Dioxide 37.6 H (24-32.6) mmol/L Anion Gap 6.7 L (6.8-13.8) mmol/L Est GFR (Non-Af Amer) 54 L (60-130) mL/min Random Glucose 143 H (70-110) mg/dL - Exam Constitutional: Present: Alert, Cooperative, No distress ENT Exam: Present: hearing grossly normal Neck: Present: full range of motion, supple Breasts: Present: Exam deferred Respiratory: Present: chest non-tender, no respiratory distress, no accessory muscle use, decreased breath sounds Cardiovascular/Chest: Present: regular rate, rhythm, no chest tenderness, edema - +1 lower extremity edema bilat Abdomen: Present: soft, nontender, nondistended /Rectal: Present: Exam deferred Extremity: Present: non-tender, no calf tenderness Skin Exam: Present: normal color, warm/dry, no cyanosis Cauti Physician Documentation - Urinary Catheter Management Uretheral (Alfred) Urethral Indwelling: No Assessment/Plan Plan Narrative: COPD exac with hypoxia and hypercapnia - In ER 70% on RA - not using 4L nc at home consistently - Given duoneb tx and 125 mg iv solumedrol in ER - Solumedrol 80 mg q 8 hours - Day #3 - IV abx (per COPD exac protocol) - Rocephin 1 gm iv daily - Day #3 - Azithromycin 500 mg iv daily - Day #3 - Duoneb treatments QID - Incentive spirometer q1 hour while awake - encourage cough / deep breathing - cont O2 monitor Acute on Chronic respiratory failure - In ER 70% on RA - not using 4L nc at home consistently - with history COPD, goal O2 range: 88-92% - O2 per nc with bipap was needed has been ordered. - On admission from ER, saturating 95% on 4L nc. - episode of 88% on 4L nc documented as well - Due to COPD exac. - Abx treatment (per copd protocol) - rocephin 1 gm iv daily - day #3 - azithromycin 500 mg iv daily - day #3 Acute diastolic heart failure exac - legs with +1 pitting edema bilat - BNP elevated. - Lasix 40 mg iv x1 05/08/17 - no significant urine output documented - still with pitting edema - Lasix 80 mg iv x1 05/10/17 - strict I&Os - daily weights - CHF teaching - telemetry Generalized weakness - consult PT/OT UTI, suspected - urine culture pending. - Rocephin 1 gm iv daily - Day #3 Sleep apnea - bipap/cpap at night - encourage use at home. HTN - vitals q 4 hours Code status: DNR VTE: lovenox / knee high shanthi hose GI proph: protonix po. - Problems/Diagnosis (1) Acute exacerbation of chronic obstructive pulmonary disease (COPD) Problem: Acute (2) Acute and chronic respiratory failure ([id number]) Problem: Acute QualifierTitle: Respiratory failure complication: hypoxia and hypercapnia Qualified Code(s): J96.21 - Acute and chronic respiratory failure with hypoxia ; J96.22 - Acute and chronic respiratory failure with hypercapnia (3) Acute diastolic CHF (congestive heart failure), NYHA class 2 Problem: Acute (4) HTN (hypertension) Problem: Chronic QualifierTitle: Hypertension type: essential hypertension Qualified Code( s): I10 - Essential (primary) hypertension (5) Sleep apnea Problem: Chronic QualifierTitle: Sleep apnea type: unspecified type Qualified Code(s): G47.30 - Sleep apnea, unspecified (6) UTI (urinary tract infection) Problem: Acute QualifierTitle: Urinary tract infection type: acute cystitis Hematuria presence: without hematuria Qualified Code(s): N30.00 - Acute cystitis without hematuria (7) Generalized weakness Problem: Acute <Piotr Hines - Last Filed: 05/10/17 12:19> Subjective Subjective Narrative: Much better than yesterday. Wbc count up a bit due to steroids. Lungs clearer due to steroids. Probably home tomorrow. I directly supervised our nurse practitioner hospitalist care for this patient. Objective - Vitals Vitals: Last Vital Signs Temp 36.8 C 05/10/17 10:30 Pulse 65 05/10/17 10:39 Resp 23 H 05/10/17 10:39 BP 135/50 05/10/17 10:30 Pulse Ox 94 05/10/17 10:30 - Abnormal Lab Findings Abnormal Lab Findings: Abnormal Lab Results 05/10/17 05/10/17 Range/Units 05:20 05:20 WBC 13.9 H D (4.0-10.5) K/mm3 Hct 47.9 H (37.0-47.0) % MCHC 28.8 L (32-36) g/dl RDW 15.3 H (11.5-14.0) % MPV 11.6 H (6.0-9.5) fl Immature Gran % (Auto) 0.70 H (0.001-0.429) % Immature Gran # (Auto) 0.10 H (0.000-0.0310) K/mm3 Neutrophils % 91.8 H (42-75.0) % Lymphocytes % 4.4 L (20-51) % Neutrophils # 12.8 H (1.3-6.0) K/mm3 Lymphocytes # 0.6 L (1.5-3.5) k/mm3 Carbon Dioxide 37.6 H (24-32.6) mmol/L Anion Gap 6.7 L (6.8-13.8) mmol/L Est GFR (Non-Af Amer) 54 L (60-130) mL/min Random Glucose 143 H (70-110) mg/dL
[2017-05-10] MEDS: PANTOPRAZOLE SODIUM 40 MG TABLET.EC PO SCH (06:38)
[2017-05-10] MEDS ORDERED: ALBUTEROL SULFATE 2.5 MG/3 ML VIAL.NEB IH PRN (07:31)
[2017-05-10] MEDS: FLUTICASONE/SALMETEROL 14 PUFF DISK.W.DEV IH SCH ×2 (09:36→20:30)
[2017-05-10] MEDS: amLODIPine BESYLATE 10 MG TABLET PO SCH (09:38)
[2017-05-10] MEDS: METOPROLOL SUCCINATE 50 MG TABLET.SA PO SCH (09:38)
[2017-05-10] MEDS: FUROSEMIDE 40 MG TABLET PO SCH (09:39)
[2017-05-10] MEDS ORDERED: POTASSIUM CHLORIDE 20 MEQ TABLET.SA PO SCH (12:00)
[2017-05-10] MEDS ORDERED: BISACODYL 5 MG TABLET.DR PO ONE (19:58)
[2017-05-10] MEDS: traZODone HCL 50 MG TABLET PO SCH (20:30)
[2017-05-10] MEDS: ENOXAPARIN SODIUM 40 MG/0.4 ML SYRG SC SCH (20:31)
[2017-05-10] MEDS: GABAPENTIN 400 MG CAPSULE PO SCH (20:31)
[2017-05-10] MEDS ORDERED: LITHIUM CARBONATE 150 MG CAPSULE PO SCH (21:00)
[2017-05-10] MEDS ORDERED: LURASIDONE HCL 80 MG TABLET PO SCH (21:00)
[2017-05-11] MEDS: AZITHROMYCIN 500 MG in DEXTROSE 5 % IN WATER 250 ML IV SCH ×2
[2017-05-11 05:22] LABS: Hematocrit 46.6 % (37.0-47.0); Hemoglobin 13.6 gm/dL (12.5-16.0); Mean Corpuscular Hemoglobin 27.1 pg (27-31); Mean Corpuscular Hgb Conc 29.2 g/dl (32-36); Mean Platelet Volume 11.5 fl (6.0-9.5); Neutrophil # 11.5 K/mm3 (1.3-6.0); Neutrophil % 91.3 % (42-75.0); Platelet Count 214 K/mm3 (150-450); Red Blood Count 5.01 M/mm3 (4.2-5.4); Red Cell Distribution Width 15.2 % (11.5-14.0); White Blood Count 12.6 K/mm3 (4.0-10.5)
[2017-05-11] MEDS: METHYLPREDNISOLONE SOD SUCC 80 MG in WATER FOR INJ.,BACTERIOSTATIC 0 ML IV SCH ×2 (05:29→11:32)
[2017-05-11 05:39] LABS: Anion Gap 5.6 mmol/L (6.8-13.8); BUN/Creatinine Ratio 26.7 (9.0-21.6); Calcium * 9.6 mg/dL (7.9-10.9); Carbon Dioxide 38.4 mmol/L (24-32.6); Estimated Creat Clear 35.2
[2017-05-11] MEDS: ALBUTEROL SULFATE/IPRATROPIUM 3 ML NEBU IH SCH ×2 (06:03→10:20)
[2017-05-11] MEDS: PANTOPRAZOLE SODIUM 40 MG TABLET.EC PO SCH (07:13)
[2017-05-11] MEDS: METOPROLOL SUCCINATE 50 MG TABLET.SA PO SCH (09:58)
[2017-05-11] MEDS: FUROSEMIDE 40 MG TABLET PO SCH (09:58)
[2017-05-11] MEDS: amLODIPine BESYLATE 10 MG TABLET PO SCH (09:58)
[2017-05-11] MEDS: FLUTICASONE/SALMETEROL 14 PUFF DISK.W.DEV IH SCH (09:59)
[2017-05-11 11:32] VITALS: BP 128/84
--- NOTE | 2017-05-11 12:19 | DS ---
(1) Acute exacerbation of chronic obstructive pulmonary disease (COPD) Problem: Chronic (2) Hypoxia Problem: Acute (3) HTN (hypertension) Problem: Chronic Qualifiers: Hypertension type: essential hypertension Qualified Code(s): I10 - Essential (primary) hypertension (4) Acute and chronic respiratory failure ([id number]) Problem: Resolved Qualifiers: Respiratory failure complication: hypoxia and hypercapnia Qualified Code(s) : J96.21 - Acute and chronic respiratory failure with hypoxia; J96.22 - Acute and chronic respiratory failure with hypercapnia (5) Acute diastolic CHF (congestive heart failure), NYHA class 2 Problem: Resolved Procedures Performed: none Discharge Disposition: Home self care Disposition: Home self-care Condition: Good Discharge Activity: Activity as tolerated Discharge Diet: Low salt Referrals: Rafael Diaz DO [Primary Care Provider] - Problem Oriented Discharge Instructions to Patient/Family: Chronic Obstructive Pulmonary Disease Exacerbation, [id number] Additional Patient Instructions (free text): Followup with Dr. Diaz in 2 weeks. CBC and BMP in 2 weeks. Prescriptions (Any new or edited meds): Levofloxacin [Levaquin] 500 mg PO DAILY #10 tab predniSONE [Prednisone] 3 tab PO BID #60 tab Complete Home Medications List: Complete Home Medication List: Albuterol Sulfate [Albuterol Sulfate 2.5 MG/0.5ML] 1 vial IH Q6H PRN 08/14/15 Gabapentin [Neurontin] 400 mg PO HS 08/14/15 [place] Carbonate 300 mg PO HS 08/14/15 Lurasidone HCl [Latuda] 120 mg PO HS 08/14/15 traZODone HCL [Oleptro ER] 100 mg PO HS 08/14/15 Metoprolol Succinate [Toprol Xl] 50 mg PO DAILY 05/20/16 amLODIPine BESYLATE [Norvasc] 10 mg PO DAILY 05/20/16 Albuterol Sulfate [Albuterol Sulfate 2.5 MG/0.5ML] 2.5 mg IH Q6HRT PRN #0 vial.neb 05/21/16 Budesonide/Formoterol Fumarate [Symbicort 80-4.5 Mcg Inhaler] 10.2 gm IH BID #1 hfa.aer.ad 05/21/16 Furosemide [Lasix] 40 mg PO DAILY #60 tablet 05/21/16 Levofloxacin [Levaquin] 500 mg PO DAILY #10 tab 05/11/17 predniSONE [Prednisone] 3 tab PO BID #60 tab 05/11/17
== END 2017-05-11 11:45 | disposition home or self-care (01) | DRG 189 ==
LOC: ER 15:59 → MS 19:04
PROVIDERS: ADMIT Allergy & Immunology; ATTEND Allergy & Immunology
PROC: 4A033R1 Measurement of Arterial Saturation, Peripheral, Percutaneous Approach (ICD-10-PCS; principal; 2017-05-08)
DX: J96.22 Acute and chronic respiratory failure with hypercapnia (principal); I50.31 Acute diastolic (congestive) heart failure; J44.1 Chronic obstructive pulmonary disease with (acute) exacerbation; E87.4 Mixed disorder of acid-base balance; J96.21 Acute and chronic respiratory failure with hypoxia; R53.1 Weakness; I10 Essential (primary) hypertension; Z87.891 Personal history of nicotine dependence; Z87.440 Personal history of urinary (tract) infections

== ENCOUNTER 2017-08-15 15:21 | Emergency (ER) | payer MEDICARE, MEDICAID ==
--- NOTE | 2017-08-15 15:41 | ERNOTE ---
Dyspnea - Date Date of Service: 08/15/17 - General Presenting Symptoms: shortness of breath Time Seen by Provider: 08/15/17 15:32 Source: patient, RN notes reviewed, old records Exam Limitations: no limitations - Immun/Allergies/Home Medications Immunizations: IMMUNIZATION HX Immunizations Up to Date No History of Influenza Vaccine No Hx Pneumococcal Vaccination Yes Allergies/Adverse Reactions: Allergies No Known Allergies Allergy (Verified 05/09/17 02:09) Home Medications: HOME MEDICATIONS Albuterol Sulfate [Albuterol Sulfate 2.5 MG/0.5ML] 1 vial IH Q6H PRN 08/14/15 [ Last Taken Unknown] Gabapentin [Neurontin] 400 mg PO HS 08/14/15 [Last Taken 05/07/17] [place] Carbonate 300 mg PO HS 08/14/15 [Last Taken 05/08/17] Lurasidone HCl [Latuda] 120 mg PO HS 08/14/15 [Last Taken 05/08/17] traZODone HCL [Oleptro ER] 100 mg PO HS 08/14/15 [Last Taken 05/07/17] Metoprolol Succinate [Toprol Xl] 50 mg PO DAILY 05/20/16 [Last Taken 05/08/17] amLODIPine BESYLATE [Norvasc] 10 mg PO DAILY 05/20/16 [Last Taken 05/08/17] Albuterol Sulfate [Albuterol Sulfate 2.5 MG/0.5ML] 2.5 mg IH Q6HRT PRN #0 vial.neb 05/21/16 [Last Taken Unknown] Budesonide/Formoterol Fumarate [Symbicort 80-4.5 Mcg Inhaler] 10.2 gm IH BID #1 hfa.aer.ad 05/21/16 [Last Taken 05/08/17] Furosemide [Lasix] 40 mg PO DAILY #60 tablet 05/21/16 [Last Taken 05/08/17] Levofloxacin [Levaquin] 500 mg PO DAILY #10 tab 05/11/17 [Last Taken Unknown] predniSONE [Prednisone] 3 tab PO BID #60 tab 05/11/17 [Last Taken Unknown] - History of Present Illness Narrative: 72 y/o female brought to the ED from outpatient registration for a low oxygen saturation. She has been more short of breath for several days. She contacted her PCP and was prescribed Levaquin and prednisone for COPD 3 days ago. She does not feel like she has improved since starting the medications. Her SpO2 was 85% in triage. On review of her clinic record, her SpO2 was 85% at her last office visit. She states she is not coughing more than usual. She admits that she has not been using her nebulizer as much as she should. Initiating event: Reports: unknown Prior Treatment: Reports: recently seen, currently on antibiotics Review of Systems - Review of Systems Constitutional: Absent: fever, chills, fatigue, malaise EYE: Present: no symptoms reported ENT: Absent: nose congestion, sore throat Respiratory: Present: shortness of breath, cough. Absent: orthopnea, wheezing Cardiology: Absent: chest pain, edema Gastrointestinal/Abdominal: Absent: nausea, abdominal pain Genitourinary: Absent: dysuria, decreased urinary output Musculoskeletal: Present: no symptoms reported Skin: Absent: rash, lesions Neurological: Absent: headache, dizziness/light-headedness Endocrine: Present: no symptoms reported Hematologic/Lymphatic: Present: no symptoms reported Psych: Present: no symptoms reported - Patient's Past Medical History Patient History - Medical: Anxiety, Bipolar, Depression Patient History - Cardiac/Respiratory: CHF, COPD, Hypertension Patient History - Cancer: No Hx of Cancer Patient History - Surgical Procedures: Cholecystectomy Patient History - Other: None LMP (females 10-50): Menopausal - Family History Father Family History - Medical: Family History - Cardiac/Respiratory: COPD Mother Family History - Medical: Family History - Cardiac/Respiratory: CVA/Stroke Sister Family History - Medical: Family History - Cardiac/Respiratory: COPD, CVA/Stroke - Social History Living Situations: home Abuse History: No History of abuse Psych History: Hx of Anxiety, Hx of Depression, Hx of Bipolar Disorder, Current tx/ever been on anti-depressants or anti-anxiety meds Smoking Status: Former smoker Have you smoked in the past 12 months: No Do you dip or chew tobacco: No Alcohol Use: occasionally Drug Use: none - Immunizations Immunizations Up to Date: No Hx Pneumococcal Vaccination: Yes History of Influenza Vaccine: No Physical Exam - Physical Exam General Appearance: Present: wd/wn, alert, no apparent distress, obese, other - Well dressed and groomed Ears, Nose, Throat: Present: normal ENT inspection Neck: Present: normal inspection, nontender, supple Respiratory: Present: no respiratory distress, no accessory muscle use, decreased breath sounds, expiration (prolonged) Cardiovascular/Chest: Present: regular rate, rhythm, no murmur, normal peripheral pulses Extremity Exam: Present: normal inspection, no edema Neurological Exam: Present: alert, oriented, normal mood/affect Skin Exam: Present: normal color, warm/dry ED Progress - Results and Orders Patient's Lab Results:: I have reviewed the patient's lab results. - Vital Signs Patient's Vital Signs:: I have reviewed the patient's vital signs. Vital Signs: Vital Signs 08/15/17 15:24 Temperature 36.9 C Pulse Rate 76 Respiratory 20 Rate Blood Pressure 135/58 O2 Sat by Pulse 85 L Oximetry - EKG EKG: NSR EKG read: Reviewed by me - X-Ray X-Ray #1 X-Ray: chest Interpretation: Reviewed by me X-ray Comments: TWO VIEW CHEST Comparison: 05/08/2017 and 05/20/2016 Technique: Upright frontal and lateral views of the chest were obtained. Findings: The cardiac silhouette is borderline enlarged, but unchanged. The mediastinum and hilum are with in normal limits. The lung alvarado demonstrate mild hyperinflation with scattered fibrotic change again seen is linear density in the left lung base. There is suggestion of prior calcified granulomatous disease. I do not see evidence for a definable infiltrate, effusion or pulmonary edema. IMPRESSION: 1. BORDERLINE ENLARGED CARDIAC SILHOUETTE, UNCHANGED. 2. HYPERINFLATION WITH SCATTERED FIBROTIC CHANGE PARTICULARLY IN THE LUNG BASES. 3. NO DEFINABLE ACUTE CARDIOPULMONARY PROCESS Electronically signed by Raza Quinones M.D.. - Progress/Reassessment Chief Complaint: Dyspnea Progress:: Unchanged Plan - Plan Plan: No acute findings on labs or xray. To continue current antibiotic and prednisone , and use nebulizer as directed. Departure Clinical Impression: COPD with exacerbation - Departure Disposition: Home Follow Up Needed Condition: Good Instructions: Chronic Obstructive Pulmonary Disease Exacerbation, [id number] Additional Instructions: Continue your current antibiotic and prednisone Do your nebulizer treatments every 6 hours Follow up as needed, or return to ER if symptoms worsen Referrals: Rafael Diaz, [Primary Care Provider] -
[2017-08-15 15:45] LABS: Hematocrit 49.5 % (37.0-47.0); Hemoglobin 14.6 gm/dL (12.5-16.0); Mean Corpuscular Hgb Conc 29.5 g/dl (32-36); Mean Platelet Volume 11.7 fl (6.0-9.5); Neutrophil # 8.6 K/mm3 (1.3-6.0); Neutrophil % 84.3 % (42-75.0); Platelet Count 268 K/mm3 (150-450); Red Blood Count 5.21 M/mm3 (4.2-5.4); Red Cell Distribution Width 16.3 % (11.5-14.0); White Blood Count 10.1 K/mm3 (4.0-10.5)
[2017-08-15 17:41] VITALS: BP 129/60
== END 2017-08-15 16:20 | disposition home or self-care (01) ==
LOC: ER 15:21
DX: J44.1 Chronic obstructive pulmonary disease with (acute) exacerbation (principal); Z87.891 Personal history of nicotine dependence

== ENCOUNTER 2017-10-28 12:51 | Emergency (ER) | payer MEDICARE, MEDICAID ==
--- NOTE | 2017-10-28 13:27 | ERNOTE ---
Dyspnea - General Presenting Symptoms: shortness of breath Time Seen by Provider: 10/28/17 13:11 Source: patient Exam Limitations: no limitations - Immun/Allergies/Home Medications Immunizations: IMMUNIZATION HX Immunizations Up to Date No History of Influenza Vaccine No Hx Pneumococcal Vaccination Yes Allergies/Adverse Reactions: Allergies No Known Allergies Allergy (Verified 10/28/17 12:57) Home Medications: HOME MEDICATIONS Albuterol Sulfate [Albuterol Sulfate 2.5 MG/0.5ML] 1 vial IH Q6H PRN 08/14/15 [ Last Taken Unknown] Gabapentin [Neurontin] 400 mg PO HS 08/14/15 [Last Taken 05/07/17] [place] Carbonate 300 mg PO HS 08/14/15 [Last Taken 05/08/17] Lurasidone HCl [Latuda] 120 mg PO HS 08/14/15 [Last Taken 05/08/17] traZODone HCL [Oleptro ER] 100 mg PO HS 08/14/15 [Last Taken 05/07/17] Metoprolol Succinate [Toprol Xl] 50 mg PO DAILY 05/20/16 [Last Taken 05/08/17] amLODIPine BESYLATE [Norvasc] 10 mg PO DAILY 05/20/16 [Last Taken 05/08/17] Albuterol Sulfate [Albuterol Sulfate 2.5 MG/0.5ML] 2.5 mg IH Q6HRT PRN #0 vial.neb 05/21/16 [Last Taken Unknown] Budesonide/Formoterol Fumarate [Symbicort 80-4.5 Mcg Inhaler] 10.2 gm IH BID #1 hfa.aer.ad 05/21/16 [Last Taken 05/08/17] Furosemide [Lasix] 40 mg PO DAILY #60 tablet 05/21/16 [Last Taken 05/08/17] Levofloxacin [Levaquin] 500 mg PO DAILY #10 tab 05/11/17 [Last Taken Unknown] predniSONE [Prednisone] 3 tab PO BID #60 tab 05/11/17 [Last Taken Unknown] Doxycycline Monohydrate 100 mg PO BID #20 tablet 10/28/17 [Last Taken Unknown] predniSONE [Deltasone] 20 mg PO BID #10 tablet 10/28/17 [Last Taken Unknown] - History of Present Illness Narrative: Patient states that while she was at home on her O2 concentrator that her oxygen saturations were falling into the 70s. Patient has chronic COPD and stays on continuous O2 at all times. While she was home she was complaining of some shortness of breath, however washes here back on 4 L her oxygen saturations are now in the mid upper 90s and she feels good. Severity: moderate Treatment SEO ANALYST: by patient Initiating event: Reports: none Frequency of episodes: Reports: occassional episodes Modifying Factors - (Improves): Reports: oxygen Modifying Factors (Worsens): Reports: activity Associated Symptoms-Dyspnea: Reports: denies symptoms Prior Treatment: Reports: recently seen Review of Systems - Review of Systems Constitutional: Present: See HPI EYE: Present: no symptoms reported ENT: Present: no symptoms reported Respiratory: Present: See HPI Cardiology: Present: no symptoms reported Gastrointestinal/Abdominal: Present: no symptoms reported Genitourinary: Present: no symptoms reported Musculoskeletal: Present: no symptoms reported Skin: Present: no symptoms reported Neurological: Present: no symptoms reported Endocrine: Present: no symptoms reported Hematologic/Lymphatic: Present: no symptoms reported Psych: Present: no symptoms reported - Patient's Past Medical History Patient History - Medical: Anxiety, Bipolar, Depression Patient History - Cardiac/Respiratory: CHF, COPD, Hypertension Patient History - Cancer: No Hx of Cancer Patient History - Surgical Procedures: Cholecystectomy Patient History - Other: None - Family History Father Family History - Medical: Family History - Cardiac/Respiratory: COPD Mother Family History - Medical: Family History - Cardiac/Respiratory: CVA/Stroke Sister Family History - Medical: Family History - Cardiac/Respiratory: COPD, CVA/Stroke - Social History Living Situations: home Abuse History: No History of abuse Psych History: Hx of Anxiety, Hx of Depression, Hx of Bipolar Disorder, Current tx/ever been on anti-depressants or anti-anxiety meds Alcohol Use: none Drug Use: none - Immunizations Immunizations Up to Date: No Hx Pneumococcal Vaccination: Yes History of Influenza Vaccine: No Physical Exam - Physical Exam General Appearance: Present: wd/wn, alert, no apparent distress Head Exam: Present: normal inspection, no evidence of injury Eye Exam: Normal inspection: bilateral, PERRL: bilateral Ears, Nose, Throat: Present: normal ENT inspection, H, normal pharynx Neck: Present: normal inspection, nontender Respiratory: Present: no respiratory distress, no accessory muscle use, chest nontender, lungs clear, decreased breath sounds Cardiovascular/Chest: Present: regular rate, rhythm, no murmur, normal peripheral pulses Gastrointestinal/Abdominal: Present: normal bowel sounds, nontender, nondistended, soft, no organomegaly Rectal Exam: Present: deferred Back Exam: Present: normal inspection, normal range of motion Extremity Exam: Present: normal inspection, non-tender, no edema, normal range of motion Neurological Exam: Present: alert, oriented, normal mood/affect Skin Exam: Present: normal color, warm/dry Lymphatic Exam: Present: no adenopathy ED Progress - Results and Orders Patient's Lab Results:: I have reviewed the patient's lab results. - Vital Signs Patient's Vital Signs:: I have reviewed the patient's vital signs. Vital Signs: Vital Signs 10/28/17 10/28/17 12:54 13:07 Temperature 36.2 C L Pulse Rate 88 86 Respiratory 20 20 Rate Blood Pressure 125/67 110/47 O2 Sat by Pulse 85 L 93 Oximetry - X-Ray X-Ray #1 X-Ray: chest Interpretation: Reviewed by me - Progress/Reassessment Chief Complaint: Dyspnea Plan - Plan Plan: Patient has known COPD states she always does better when she flares up like this with a few days of steroids and a week of antibiotics. Went to have her double up on her Lasix for 5 days at home as well and she agrees to see her family physician next week. I suspect the patient may have a defective concentrator at home as ordered typical 4 L she is stated at 97-98% entire time in the ED. She states she has a backup unit that she can use at home and she will call the rep to have that concentrator serviced. Departure Clinical Impression: Suspected CHF (congestive heart failure) COPD (chronic obstructive pulmonary disease) with emphysema Qualifiers: Emphysema type: unspecified Qualified Code(s): J43.9 - Emphysema, unspecified - Departure Disposition: Home self-care Condition: Good Instructions: Chronic Obstructive Pulmonary Disease, [id number], Heart Failure, [id number] Additional Instructions: Double up on your Lasix at home for the next 5 days Referrals: Rafael Diaz DO [Primary Care Provider] - Prescriptions: Doxycycline Monohydrate 100 mg PO BID #20 tablet predniSONE [Deltasone] 20 mg PO BID #10 tablet
[2017-10-28 13:43] LABS: Hematocrit 50.3 % (37.0-47.0); Hemoglobin 14.7 gm/dL (12.5-16.0); Mean Cell Volume 93.8 fl (78-100); Mean Corpuscular Hemoglobin 27.4 pg (27-31); Mean Corpuscular Hgb Conc 29.2 g/dl (32-36); Mean Platelet Volume 11.4 fl (6.0-9.5); Neutrophil # 7.8 K/mm3 (1.3-6.0); Platelet Count 251 K/mm3 (150-450); Red Blood Count 5.36 M/mm3 (4.2-5.4); Red Cell Distribution Width 17.9 % (11.5-14.0); White Blood Count 10.6 K/mm3 (4.0-10.5)
[2017-10-28 14:05] LABS: Albumin * 3.4 gm/dl (3.4-5.0); Anion Gap 9.9 mmol/L (6.8-13.8); Bilirubin, Total 0.4 mg/dL (0.0-1.1); Ca. Corrected For Albumin 9.6 mg/dL (8.4-10.2); Calcium * 9.4 mg/dL (7.9-10.9); Carbon Dioxide 34.9 mmol/L (24-32.6); Potassium 3.8 mmol/L (3.4-4.6); Total Protein 7.4 gm/dL (6.2-8.2)
[2017-10-28 14:54] LABS: Magnesium 1.9 mg/dL (1.2-2.8)
[2017-10-28 15:18] VITALS: BP 102/56
== END 2017-10-28 15:21 | disposition home or self-care (01) ==
LOC: ER 12:51
DX: J43.9 Emphysema, unspecified (principal); I10 Essential (primary) hypertension; F31.9 Bipolar disorder, unspecified; I50.9 Heart failure, unspecified

== ENCOUNTER 2018-10-14 13:48 | Inpatient (IN) | payer MEDICAID, MEDICARE ==
[2018-10-14] MEDS ORDERED: ALBUTEROL SULFATE 2.5 MG/0.5 ML VIAL.NEB IH PRN (15:01)
[2018-10-14] MEDS ORDERED: LEVOFLOXACIN 750 MG TABLET PO ONE (15:07)
[2018-10-14 15:29] LABS: Hematocrit 46.1 % (37.0-47.0); Hemoglobin 13.7 gm/dL (12.5-16.0); Mean Cell Volume 100.7 fl (78-100); Mean Corpuscular Hemoglobin 29.9 pg (27-31); Mean Corpuscular Hgb Conc 29.7 g/dl (32-36); Mean Platelet Volume 10.6 fl (8-12.5); Neutrophil # 8.1 K/mm3 (1.3-6.0); Neutrophil % 71.3 % (42-75.0); Platelet Count 186 K/mm3 (150-450); Red Blood Count 4.58 M/mm3 (4.2-5.4); Red Cell Distribution Width 14.5 % (11.5-14.0); White Blood Count 11.4 K/mm3 (4.0-10.5)
[2018-10-14 15:41] LABS: Albumin * 3.1 gm/dl (3.4-5.0); Anion Gap 5.8 mmol/L (6.8-13.8); BUN/Creatinine Ratio 10.3 (9.0-21.6); Bilirubin, Total 0.5 mg/dL (0.0-1.1); Ca. Corrected For Albumin 9.9 mg/dL (8.4-10.2); Calcium * 9.5 mg/dL (7.9-10.9); Carbon Dioxide 35.7 mmol/L (24-32.6); Potassium 4.5 mmol/L (3.4-4.6); Total Protein 6.9 gm/dL (6.2-8.2)
[2018-10-14] MEDS: ALBUTEROL SULFATE/IPRATROPIUM 3 ML NEBU IH SCH ×2 (15:50→18:18)
[2018-10-14] MEDS: METHYLPREDNISOLONE SOD SUCC/PF 40 MG/ML VIAL IV SCH ×2 (16:15→22:16)
--- NOTE | 2018-10-14 16:39 | HP ---
Chief Complaint - Chief Complaint Date of Service: 10/14/18 Time of Service: 16:08 Chief Complaint: Shortness of breath History of Present Illness: Flakita is a 73 yo female with Chronic Respiratory Failure secondary to End Stage COPD. She is chronically on 4lpm of oxygen at home continuous. She was seen within the past week for shortness of breath and started on doxycycline for COPD exacerbation. She has been taking this medication at home. A week prior to that she was on azithromycin and prednisone without improvement. In clinic she reported not feeling bad enough to be in the hospital, but since she has been home for the last few days she reports worsening shortness of breath, fatigue, and productive cough. She checked her oxygen at home today and it was 70% on her usual 4lpm of oxygen. She called the clinic today to report her symptoms and was informed that she needs to be admitted. 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) Hypertension (Acute) Depression (Acute) COPD (chronic obstructive pulmonary disease) (Acute) Bipolar 1 disorder (Acute) Arthritis (Acute) Non compliance w medication regimen CHF (congestive heart failure) Hypokalemia Onset Date: ~08/06/17 Pleural effusion Surgical History: Surgical History (Last Reviewed 10/14/18 @ 14:58 by Nataly Segal RN) History of cholecystectomy Family History: Family History (Last Reviewed 10/14/18 @ 14:59 by Nataly Segal RN) Mother , age 72 CVA (cerebral vascular accident) Hypertension Father , age 78 Alcoholism Emphysema lung Sister , von hippel charline disease No problems noted. Social History: Patient Lives/Resources Home Utilized Occupation [employer] Preferred Language American Do you have any methodist or Yes: Confucianism cultural preference? Smoking Status Former smoker Have you smoked in the past 12 No months Do you dip or chew tobacco No Abuse History No History of abuse Psych History Hx of Anxiety,Hx of Depression,Hx of Bipolar Disorder,Currently on Meds (Last Updated 10/01/18 @ 23:50 by Rafael Diaz DO) No Social History Section defined Review Of Systems (GEN) - Review of Systems Generalized/Overall Review: Present: Weakness. Absent: Chills, Fever EENTM: Present: No Symptoms Reported Respiratory: Present: Cough, Shortness of Breath Cardiac: Absent: Chest Pain, Edema, Palpitations Abdominal: Absent: Nausea, Vomiting Genitourinary: Present: No Symptoms Reported Musculoskeletal: Present: No Symptoms Reported Neurological: Present: No Symptoms Reported Skin: Present: No Symptoms Reported Immunizations: IMMUNIZATION HX Immunizations Up to Date Yes History of Influenza Vaccine No Hx Pneumococcal Vaccination Yes Allergies/Adverse Reactions: Allergies Allergy/AdvReac Type Severity Reaction Status Date / Time No Known Allergies Allergy Verified 10/14/18 14:59 Home Medications: HOME MEDICATIONS budesonide-formoterol HFA 160 mcg-4.5 mcg/actuation aerosol inhaler 2 puff IH BID 06/02/18 [Last Taken Unknown] gabapentin 400 mg capsule 400 mg PO BID PRN 06/02/18 [Last Taken Unknown] lithium carbonate 300 mg capsule 300 mg PO HS #90 cap 06/29/18 [Last Taken Unknown] lurasidone 60 mg tablet 60 mg PO DAILY #90 tab 06/29/18 [Last Taken Unknown] trazodone 100 mg tablet 100 mg PO DAILY #90 tab 06/29/18 [Last Taken Unknown] meloxicam 15 mg tablet 15 mg PO DAILY #30 tab 07/03/18 [Last Taken Unknown] albuterol sulfate HFA 90 mcg/actuation aerosol inhaler 2 puff IH Q6H PRN #8 g 09/10/18 [Last Taken 10/11/18 13:46] amlodipine 10 mg tablet 10 mg PO DAILY #90 tab 10/09/18 [Last Taken Unknown] potassium chloride ER 10 mEq tablet,extended release 20 meq PO DAILY #180 tab 10/09/18 [Last Taken Unknown] metoprolol succinate ER 50 mg tablet,extended release 24 hr 50 mg PO DAILY #90 tab 10/11/18 [Last Taken Unknown] doxycycline monohydrate 100 mg capsule 100 mg PO BID 10 Days #20 cap 10/12/18 [Last Taken Unknown] umeclidinium 62.5 mcg/actuation blister powder for inhalation 1 inh IH DAILY #30 ea 10/12/18 [Last Taken Unknown] bumetanide 2 mg tablet 2 mg PO DAILY #90 tab 10/13/18 [Last Taken Unknown] Exam - Exam Vital Signs: Vital Signs - Last Taken Temp 36.6 C 10/14/18 15:01 Pulse 71 10/14/18 15:50 Resp 20 10/14/18 15:50 BP 128/51 10/14/18 15:01 Pulse Ox 91 L 10/14/18 15:50 Constitutional: Present: Alert, Oriented x3, Cooperative ENT Exam: Present: hearing grossly normal Eye Exam: bilateral eye: normal inspection Respiratory: Present: decreased breath sounds - diffuse, wheezing - diffuse Cardiovascular/Chest: Present: regular rate, rhythm, no murmur Peripheral Pulses: radial (R): 2+, radial (L): 2+ Abdomen: Present: Normal bowel sounds, soft, nontender, nondistended Skin Exam: Present: normal color, warm/dry, no cyanosis Lymphatic: Present: no adenopathy Appearance: Present: appropriate appearance, appropriate insight Eye contact: Present: cooperative, good eye contact, normal speech Thoughts: Present: normal thought pattern, no apparent hallucination Diagnostic Studies: Abnormal Lab Results 10/14/18 10/14/18 10/14/18 Range/Units 15:18 15:18 15:42 WBC 11.4 H (4.0-10.5) K/mm3 MCV 100.7 H (78-100) fl MCHC 29.7 L (32-36) g/dl RDW 14.5 H (11.5-14.0) % Immature Gran % (Auto) 0.80 H (0.001-0.429) % Immature Gran # (Auto) 0.09 H (0.000-0.0310) K/mm3 Lymphocytes % 15.0 L (20-51) % Eosinophils % 5.8 H (0.0-3.0) % Neutrophils # 8.1 H (1.3-6.0) K/mm3 pCO2 65.6 H (32.0-45.0) mmHg pO2 56.7 L (83.0-108.0) mmHg HCO3 35.2 H (21.0-28.0) mmol/L Total CO2 37.2 H (19.0-24.0) mmol/L Base Excess 7.1 H (-2.0-3.0) mmol/L ABG O2 Sat (Measured) 87.1 L (94.0-98.0) % Carbon Dioxide 35.7 H (24-32.6) mmol/L Anion Gap 5.8 L (6.8-13.8) mmol/L Est GFR (Non-Af Amer) 44 L (60-130) mL/min ALT 11 L (19-67) U/L Albumin 3.1 L (3.4-5.0) gm/dl Laboratory Results WBC 11.4 K/mm3 (4.0-10.5) H 10/14/18 15:18 RBC 4.58 M/mm3 (4.2-5.4) 10/14/18 15:18 Hgb 13.7 gm/dL (12.5-16.0) 10/14/18 15:18 Hct 46.1 % (37.0-47.0) 10/14/18 15:18 MCV 100.7 fl (78-100) H 10/14/18 15:18 MCH 29.9 pg (27-31) 10/14/18 15:18 MCHC 29.7 g/dl (32-36) L 10/14/18 15:18 RDW 14.5 % (11.5-14.0) H 10/14/18 15:18 Plt Count 186 K/mm3 (150-450) 10/14/18 15:18 MPV 10.6 fl (8-12.5) 10/14/18 15:18 Immature Gran % (Auto) 0.80 % (0.001-0.429) H 10/14/18 15:18 Immature Gran # (Auto) 0.09 K/mm3 (0.000-0.0310) H 10/14/18 15:18 Neutrophils % 71.3 % (42-75.0) 10/14/18 15:18 Lymphocytes % 15.0 % (20-51) L 10/14/18 15:18 Monocytes % 6.6 % (0.0-9) 10/14/18 15:18 Eosinophils % 5.8 % (0.0-3.0) H 10/14/18 15:18 Basophils % 0.5 % (0.0-1.0) 10/14/18 15:18 Nucleated RBC % 0.0 k/mm3 (0-1) 10/14/18 15:18 Neutrophils # 8.1 K/mm3 (1.3-6.0) H 10/14/18 15:18 Lymphocytes # 1.71 k/mm3 (1.5-3.5) 10/14/18 15:18 Monocytes # 0.8 k/mm3 (0.0-1.0) 10/14/18 15:18 Eosinophils # 0.7 k/mm3 (0.0-0.7) 10/14/18 15:18 Absolute Basophils 0.1 k/mm3 (0.0-0.1) 10/14/18 15:18 pCO2 65.6 mmHg (32.0-45.0) H 10/14/18 15:42 pO2 56.7 mmHg (83.0-108.0) L 10/14/18 15:42 HCO3 35.2 mmol/L (21.0-28.0) H 10/14/18 15:42 Total CO2 37.2 mmol/L (19.0-24.0) H 10/14/18 15:42 Base Excess 7.1 mmol/L (-2.0-3.0) H 10/14/18 15:42 ABG pH 7.35 (7.35-7.45) 10/14/18 15:42 ABG O2 Sat (Measured) 87.1 % (94.0-98.0) L 10/14/18 15:42 Sodium 139 mmol/L (132-142) 10/14/18 15:18 Plasma Sodium 139 mmol/L (130-142) 10/14/18 15:18 Potassium 4.5 mmol/L (3.4-4.6) 10/14/18 15:18 Chloride 102 mmol/L (97-106) 10/14/18 15:18 Carbon Dioxide 35.7 mmol/L (24-32.6) H 10/14/18 15:18 Anion Gap 5.8 mmol/L (6.8-13.8) L 10/14/18 15:18 BUN 13 mg/dL (3-23) 10/14/18 15:18 Creatinine 1.26 mg/dL (0.4-1.4) 10/14/18 15:18 Est GFR (Non-Af Amer) 44 mL/min (60-130) L 10/14/18 15:18 BUN/Creatinine Ratio 10.3 (9.0-21.6) 10/14/18 15:18 Random Glucose 106 mg/dL (70-110) 10/14/18 15:18 Calcium 9.5 mg/dL (7.9-10.9) 10/14/18 15:18 Calcium Adj for Albumin 9.9 mg/dL (8.4-10.2) 10/14/18 15:18 Total Bilirubin 0.5 mg/dL (0.0-1.1) 10/14/18 15:18 AST 19 U/L (0-48) 10/14/18 15:18 ALT 11 U/L (19-67) L 10/14/18 15:18 Alkaline Phosphatase 87 U/L (50-170) 10/14/18 15:18 Total Protein 6.9 gm/dL (6.2-8.2) 10/14/18 15:18 Albumin 3.1 gm/dl (3.4-5.0) L 10/14/18 15:18 Assessment/Plan - Narrative Narrative: Flakita is a 73 yo female with: Acute on Chronic Respiratory Failure secondary to COPD exacerbation - She had Sp02 of 70% at home today on 4lpm. Will place on oxygen and titrate to keep at 88% - 92%. COPD is severe and likely end stage. Chronically uses 4lpm and has been on symbicort, spiriva, and azithromycin at the start of each month. In the last two weeks she has been on prednisone, azithromycin, and doxycycline. She has failed outpatient treatment and needs inpatient treatment with IV solu- medrol 60mg q6hr, scheduled duonebs QID, incentive spirometer, cornet, prn albuterol nebs q2hr. Will get sputum culture and arterial blood gas. Expect 2-3 days of inpatient treatment for COPD exacerbation which has failed outpatient treatment and acute on chronic respiratory failure. - Assessment/Plan (1) Acute and chronic respiratory failure ([id number]) Problem: Acute Qualifiers: (2) COPD with exacerbation Problem: Acute
[2018-10-14] MEDS ORDERED: GABAPENTIN 400 MG CAPSULE PO PRN (17:09)
[2018-10-14] MEDS: LITHIUM CARBONATE 150 MG CAPSULE PO SCH (21:02)
[2018-10-14] MEDS: FLUTICASONE/SALMETEROL 14 PUFF DISK.W.DEV IH SCH (21:04)
[2018-10-14] MEDS: traZODone HCL 50 MG TABLET PO SCH (22:17)
[2018-10-15] MEDS: ALBUTEROL SULFATE/IPRATROPIUM 3 ML NEBU IH SCH ×4 (00:14→18:59)
[2018-10-15] MEDS: METHYLPREDNISOLONE SOD SUCC/PF 40 MG/ML VIAL IV SCH ×4 (02:54→21:51)
[2018-10-15] MEDS: FLUTICASONE/SALMETEROL 14 PUFF DISK.W.DEV IH SCH ×2 (10:07→20:18)
[2018-10-15] MEDS: BUMETANIDE 1 MG TABLET PO SCH (10:07)
[2018-10-15] MEDS: LURASIDONE HCL 80 MG TABLET PO SCH (10:07)
[2018-10-15] MEDS: MELOXICAM 15 MG TABLET PO SCH (10:07)
[2018-10-15] MEDS: amLODIPine BESYLATE 10 MG TABLET PO SCH (10:08)
[2018-10-15] MEDS: POTASSIUM CHLORIDE 20 MEQ TABLET.SA PO SCH (10:08)
[2018-10-15] MEDS: METOPROLOL SUCCINATE 50 MG TABLET.SA PO SCH (10:08)
[2018-10-15] MEDS ORDERED: LEVOFLOXACIN 750 MG TABLET PO SCH (11:00)
[2018-10-15] MEDS: LITHIUM CARBONATE 150 MG CAPSULE PO SCH (20:16)
[2018-10-15] MEDS: traZODone HCL 50 MG TABLET PO SCH (20:17)
--- NOTE | 2018-10-15 23:50 | PN ---
Subjective - Date and Time Seen Date: 10/15/18 Time: 12:30 Subjective Narrative: Flakita reports feeling a little better today. Still very short of breath and still too short of breath to feel comfortable at home. No fever, chills, nausea, or vomiting. Objective - Vitals Vitals: Last Vital Signs Temp 36.8 C 10/15/18 21:00 Pulse 90 10/15/18 21:00 Resp 20 10/15/18 21:00 BP 113/54 10/15/18 21:00 Pulse Ox 97 10/15/18 21:00 - Exam Constitutional: Present: Alert, Oriented x3, Cooperative ENT Exam: Present: hearing grossly normal Respiratory: Present: decreased breath sounds, wheezing Cardiovascular/Chest: Present: regular rate, rhythm, no murmur Eye contact: Present: cooperative, good eye contact, normal speech Thoughts: Present: normal thought pattern, no apparent hallucination Assessment/Plan Plan Narrative: Flakita's oxygen needs have returned to baseline of 4lpm, but she is still very short of breath without activity. Continue IV steroids and levaquin. Anticipate discharge to home in 1-2 days. - Problems/Diagnosis (1) Acute and chronic respiratory failure ([id number]) Problem: Resolved Qualifiers: Respiratory failure complication: hypoxia Qualified Code(s): J96.21 - Acute and chronic respiratory failure with hypoxia (2) COPD with exacerbation Problem: Acute
[2018-10-16] MEDS: ALBUTEROL SULFATE/IPRATROPIUM 3 ML NEBU IH SCH ×4 (00:20→20:13)
[2018-10-16] MEDS: METHYLPREDNISOLONE SOD SUCC/PF 40 MG/ML VIAL IV SCH ×4 (04:32→21:07)
[2018-10-16] MEDS: FLUTICASONE/SALMETEROL 14 PUFF DISK.W.DEV IH SCH ×2 (08:48→21:04)
[2018-10-16] MEDS: POTASSIUM CHLORIDE 20 MEQ TABLET.SA PO SCH (08:49)
[2018-10-16] MEDS: LURASIDONE HCL 80 MG TABLET PO SCH (08:49)
[2018-10-16] MEDS: METOPROLOL SUCCINATE 50 MG TABLET.SA PO SCH (08:50)
[2018-10-16] MEDS: BUMETANIDE 1 MG TABLET PO SCH (08:50)
[2018-10-16] MEDS: amLODIPine BESYLATE 10 MG TABLET PO SCH (08:51)
[2018-10-16] MEDS: MELOXICAM 15 MG TABLET PO SCH (09:03)
[2018-10-16] MEDS: traZODone HCL 50 MG TABLET PO SCH (21:05)
[2018-10-16] MEDS: LITHIUM CARBONATE 150 MG CAPSULE PO SCH (21:06)
--- NOTE | 2018-10-16 23:57 | PN ---
Subjective - Date and Time Seen Date: 10/16/18 Time: 12:45 Subjective Narrative: Flakita reports continuing to improve, has not been up walking much yet due to shortness of breath. She believes that she is improving enough to go home tomorrow. No fever, chills, nausea, or vomiting. Objective - Vitals Vitals: Last Vital Signs Temp 36.5 C 10/16/18 22:00 Pulse 80 10/16/18 22:00 Resp 14 10/16/18 22:00 BP 127/62 10/16/18 22:00 Pulse Ox 92 L 10/16/18 22:00 - Exam Constitutional: Present: Alert, Oriented x3, Cooperative ENT Exam: Present: hearing grossly normal Respiratory: Present: decreased breath sounds Cardiovascular/Chest: Present: regular rate, rhythm, no murmur Skin Exam: Present: normal color, warm/dry, no cyanosis Lymphatic: Present: no adenopathy Appearance: Present: appropriate appearance, appropriate insight Assessment/Plan Plan Narrative: Continues to gradually improve. Will start oral prednisone tomorrow with taper (40mg x 7 days, then 20mg x 7 days, then 10mg x 8 days), continue Levaquin for 5 additional days, and anticipate home discharge with follow up next week. - Problems/Diagnosis (1) Acute and chronic respiratory failure ([id number]) Problem: Resolved Qualifiers: Respiratory failure complication: hypoxia Qualified Code(s): J96.21 - Acute and chronic respiratory failure with hypoxia (2) COPD with exacerbation Problem: Acute
[2018-10-17] MEDS: ALBUTEROL SULFATE/IPRATROPIUM 3 ML NEBU IH SCH ×2 (02:10→06:00)
[2018-10-17] MEDS: MELOXICAM 15 MG TABLET PO SCH (08:02)
[2018-10-17] MEDS: amLODIPine BESYLATE 10 MG TABLET PO SCH (08:02)
[2018-10-17] MEDS: LURASIDONE HCL 80 MG TABLET PO SCH (08:02)
[2018-10-17] MEDS: POTASSIUM CHLORIDE 20 MEQ TABLET.SA PO SCH (08:02)
[2018-10-17] MEDS: BUMETANIDE 1 MG TABLET PO SCH (08:02)
[2018-10-17] MEDS: FLUTICASONE/SALMETEROL 14 PUFF DISK.W.DEV IH SCH (08:02)
[2018-10-17] MEDS: METOPROLOL SUCCINATE 50 MG TABLET.SA PO SCH (08:03)
[2018-10-17] MEDS ORDERED: predniSONE 20 MG TABLET PO SCH (09:00)
--- NOTE | 2018-10-17 09:46 | DS ---
Description of Stay: Ms. Tay is a 73 yo F with End Stage COPD who was admitted earlier in the week with worsening SOB, cough, after failing outpatient tx. Apparently her sats at home were in the 70s. Since being here she has improved with IV steroids and Levaquin. Her sats have remained > 90% on her home requirements over the last few days. Yesterday she was started on an oral prednisone to be tapered over the next 20 days. She will be sent home on levaquin for another 7 days. Today she is in good spirits, states she feels well. She has no questions or concerns. Her other chronic medications were continued, no changes to be made them to them upon discharge. Procedures Performed: none Results and Findings: Lab Pending Results 10/14/18 15:18: WBC 11.4 H, RBC 4.58, Hgb 13.7, Hct 46.1, MCV 100.7 H, MCH 29.9, MCHC 29.7 L, RDW 14.5 H, Plt Count 186, MPV 10.6, Immature Gran % (Auto) 0.80 H, Immature Gran # (Auto) 0.09 H, Neutrophils % 71.3, Lymphocytes % 15.0 L, Monocytes % 6.6, Eosinophils % 5.8 H, Basophils % 0.5, Nucleated RBC % 0.0, Neutrophils # 8.1 H, Lymphocytes # 1.71, Monocytes # 0.8, Eosinophils # 0.7, Absolute Basophils 0.1 10/14/18 15:18: Sodium 139, Plasma Sodium 139, Potassium 4.5, Chloride 102, Carbon Dioxide 35.7 H, Anion Gap 5.8 L, BUN 13, Creatinine 1.26, Est GFR (Non-Af Amer) 44 L, BUN/Creatinine Ratio 10.3, Random Glucose 106, Calcium 9.5, Calcium Adj for Albumin 9.9, Total Bilirubin 0.5, AST 19, ALT 11 L, Alkaline Phosphatase 87, Total Protein 6.9, Albumin 3.1 L 10/14/18 15:42: pCO2 65.6 H, pO2 56.7 L, HCO3 35.2 H, Total CO2 37.2 H, Base Excess 7.1 H, ABG pH 7.35, ABG O2 Sat (Measured) 87.1 L Discharge Location: Home Disposition: Home self-care Condition: Fair Discharge Activity: Activity as tolerated Referrals: Rafael Diaz DO [Primary Care Provider] - One Week Additional Patient Instructions (free text): -Please make TCM appointment unless shelter discharge. Thank you! Rosenda @ [phone]. Prescriptions (Any new or edited meds): Levofloxacin [Levaquin] 750 mg PO Q48H #4 tablet predniSONE [Prednisone] 40 mg PO DAILY #25 tablet Complete Home Medications List: Complete Home Medication List: budesonide-formoterol HFA 160 mcg-4.5 mcg/actuation aerosol inhaler 2 puff IH BID 06/02/18 gabapentin 400 mg capsule 400 mg PO BID PRN 06/02/18 lithium carbonate 300 mg capsule 300 mg PO HS #90 cap 06/29/18 lurasidone 60 mg tablet 60 mg PO DAILY #90 tab 06/29/18 trazodone 100 mg tablet 100 mg PO DAILY #90 tab 06/29/18 meloxicam 15 mg tablet 15 mg PO DAILY #30 tab 07/03/18 albuterol sulfate HFA 90 mcg/actuation aerosol inhaler 2 puff IH Q6H PRN #8 g 09/10/18 amlodipine 10 mg tablet 10 mg PO DAILY #90 tab 10/09/18 potassium chloride ER 10 mEq tablet,extended release 20 meq PO DAILY #180 tab 10/09/18 metoprolol succinate ER 50 mg tablet,extended release 24 hr 50 mg PO DAILY #90 tab 10/11/18 doxycycline monohydrate 100 mg capsule 100 mg PO BID 10 Days #20 cap 10/12/18 umeclidinium 62.5 mcg/actuation blister powder for inhalation 1 inh IH DAILY #30 ea 10/12/18 bumetanide 2 mg tablet 2 mg PO DAILY #90 tab 10/13/18 Levofloxacin [Levaquin] 750 mg PO Q48H #4 tablet 10/17/18 predniSONE [Prednisone] 40 mg PO DAILY #25 tablet 10/17/18
[2018-10-17] MEDS ORDERED: LEVOFLOXACIN 750 MG TABLET PO SCH (11:00)
[2018-10-17 12:02] VITALS: BP 116/59
== END 2018-10-17 12:15 | disposition home or self-care (01) | DRG 189 ==
LOC: MS 14:34
PROVIDERS: ADMIT Family Medicine; ATTEND Family Medicine
CPT/HCPCS: 36415; 36600; 71020; 71046; 80053; 82803; 85025; 94640; 94664